=== PATIENT | male | born 1955 | race Caucasian/White ===

== ENCOUNTER 2017-07-01 12:11 | Observation (INO) | payer BC ==
[2017-07-01] MEDS ORDERED: Ondansetron 4 MG/2 ML SDV IVPUSH ONE ×2 (12:21→13:09)
[2017-07-01] MEDS ORDERED: Sodium Chloride 0.9% 1,000 ML IV SCH ×2 (12:30→14:00)
--- NOTE | 2017-07-01 12:37 | EDM.PDOC ---
ED HPI GENERAL MEDICAL PROBLEM - General Chief Complaint: Gastrointestinal Problem Stated Complaint: VOMITING Time Seen by Provider: 07/01/17 12:30 Source of Information: Reports: Patient History Limitations: Reports: No Limitations - History of Present Illness INITIAL COMMENTS - FREE TEXT/NARRATIVE: pt got up this am and felt well He was out walking and he suddenly became very nauseated and vomited alot. He has continued to wretch and vomit. He Does not have pain in his abdoman. He has been taking alot of nonsteroidals and he is on tramodol. Onset: Today, Sudden, Other ( He felt well earlier. He has been very sweaty with the vomiting. There has been blood streaked through the emesis. ) Duration: Hour(s):, Getting Worse Associated Symptoms: Reports: Nausea/Vomiting, Other ( some loose stool. He is on immunsuppresive thereapy for the melanoma. ) - Related Data Allergies Allergy/AdvReac Type Severity Reaction Status Date / Time atorvastatin AdvReac Muscle Verified 01/31/17 13:54 Aches meperidine AdvReac Nausea and Verified 01/31/17 13:54 Vomiting morphine AdvReac Nausea Verified 01/31/17 13:54 Home Meds: Home Meds Aspirin [Ecotrin] 81 mg PO DAILY 07/12/15 [History] Diltiazem HCl [Diltiazem ER] 240 mg PO DAILY 07/12/15 [History] Insulin Detemir [Levemir Flextouch] 50 units SQ BEDTIME 07/12/15 [History] Losartan [Cozaar] 100 mg PO DAILY 07/12/15 [History] Omeprazole 20 mg PO ACBREAKFAST 07/12/15 [History] metFORMIN [Glucophage] 850 mg PO BIDMEALS 07/12/15 [History] Insulin Aspart [NovoLOG] 25 units SUBCUT TIDMEALS 02/11/16 [History] Naproxen Sodium [Aleve] 440 mg PO BID 07/01/17 [History] traMADol [Ultram] 50 mg PO BEDTIME 07/01/17 [History] Past Medical History HEENT History: Reports: Impaired Vision Other HEENT History: wears glasses Cardiovascular History: Reports: High Cholesterol, Hypertension Respiratory History: Reports: Sleep Apnea Gastrointestinal History: Reports: GERD, Other (See Below) Other Gastrointestinal History: ulcer Genitourinary History: Reports: Renal Calculus Musculoskeletal History: Reports: Arthritis Neurological History: Reports: Head Trauma Endocrine/Metabolic History: Reports: Diabetes, Type II, Obesity/BMI 30+ Oncologic (Cancer) History: Reports: Other (See Below) Other Oncologic History: melanoma Dermatologic History: Reports: Melanoma Other Dermatologic History: left forehead - Infectious Disease History Infectious Disease History: Reports: Chicken Pox, Measles - Past Surgical History HEENT Surgical History: Reports: None Cardiovascular Surgical History: Reports: None Respiratory Surgical History: Reports: None GI Surgical History: Reports: Colonoscopy, Hernia Repair/Other Male Surgical History: Reports: None Endocrine Surgical History: Reports: None Musculoskeletal Surgical History: Reports: Arthroscopic Knee, Knee Replacement Dermatological Surgical History: Reports: None Social & Family History - Family History Family Medical History: Noncontributory - Tobacco Use Smoking Status *Q: Never Smoker Second Hand Smoke Exposure: No - Caffeine Use Caffeine Use: Reports: Coffee - Recreational Drug Use Recreational Drug Use: No ED ROS GENERAL - Review of Systems Review Of Systems: See Below Constitutional: Reports: Diaphoresis, Other (Pt was very sweaty with all the vomiting. ) HEENT: Reports: No Symptoms Respiratory: Reports: No Symptoms Cardiovascular: Reports: No Symptoms Endocrine: Reports: No Symptoms GI/Abdominal: Reports: Hematemesis, Nausea, Vomiting : Reports: No Symptoms Musculoskeletal: Reports: No Symptoms Skin: Reports: No Symptoms ED EXAM, GI/ABD - Physical Exam Exam: See Below Text/Narrative:: Pt was wretching and actively vomiting on arrival. He has been vomiting nearly continuously since it started. He has blood in the emesis--streaked through the emesis. He has no abdomanal pain. Exam Limited By: No Limitations General Appearance: Alert, Anxious, Moderate Distress, Active Emesis, Other Ears: Normal TMs Nose: Normal Inspection Throat/Mouth: Normal Inspection Head: Atraumatic Neck: Normal Inspection Respiratory/Chest: No Respiratory Distress Cardiovascular: Regular Rate, Rhythm, Other (pt had no chest pin. ) GI/Abdominal Exam: Soft, Non-Tender (Male) Exam: Deferred Rectal (Males) Exam: Deferred, Other (pt has not had black tarry stools. ) Back Exam: Normal Inspection Extremities: Normal Inspection Neurological: Alert, Oriented, Normal Cognition Psychiatric: Normal Affect Course - Vital Signs Last Recorded V/S: Last Vital Signs Temp 35.8 C 05/06/18 12:37 Pulse 73 07/01/17 12:37 Resp 16 07/01/17 12:37 BP 174/91 H 07/01/17 12:37 Pulse Ox 96 07/01/17 12:37 - Orders/Labs/Meds Orders: Active Orders 24 hr Category Date Time Status EKG Documentation Completion [RC] ASDIRECTED Care 07/01/17 13:06 Active OCCULT BLOOD, GASTRIC [OP] Stat Lab 07/01/17 12:31 Ordered UA W/MICROSCOPIC [URIN] Urgent Lab 07/01/17 12:21 Ordered Sodium Chloride 0.9% [Normal Saline] 1,000 ml Med 07/01/17 12:30 Active IV ASDIRECTED EKG 12 Lead [EK] Routine Ther 07/01/17 13:06 Ordered Medication Orders Sodium Chloride (Normal Saline) 1,000 mls @ 999 mls/hr IV ASDIRECTED HA Last Admin: 07/01/17 12:34 Dose: 999 mls/hr Labs: Laboratory Tests 07/01/17 07/01/17 07/01/17 Range/Units 12:28 12:28 12:28 WBC 5.8 (4.5-11.0) K/uL RBC 4.73 (4.30-5.90) M/uL Hgb 13.6 (12.0-15.0) g/dL Hct 40.9 (40.0-54.0) % MCV 87 (80-98) fL MCH 29 (27-31) pg MCHC 33 (32-36) % Plt Count 199 (150-400) K/uL Neut % (Auto) 56 (36-66) % Lymph % (Auto) 25 (24-44) % [place] % (Auto) 10 H (2-6) % Eos % (Auto) 9 H (2-4) % Baso % (Auto) 0 (0-1) % Sodium 141 (140-148) mmol/L Potassium 4.1 (3.6-5.2) mmol/L Chloride 105 (100-108) mmol/L Carbon Dioxide 26 (21-32) mmol/L Anion Gap 10.4 (5.0-14.0) mmol/L BUN 22 H (7-18) mg/dL Creatinine 1.2 (0.8-1.3) mg/dL Est Cr Clr Drug Dosing 69.16 mL/min Estimated GFR (MDRD) > 60 (>60) Glucose 139 H (74-106) mg/dL Calcium 9.0 (8.5-10.1) mg/dL Total Bilirubin 0.6 (0.2-1.0) mg/dL AST 35 (15-37) U/L ALT 35 (12-78) U/L Alkaline Phosphatase 76 (46-116) U/L Troponin I (0.000-0.056) ng/mL C-Reactive Protein 0.23 (0.0-0.3) mg/dL Total Protein 7.5 (6.4-8.2) g/dL Albumin 4.2 (3.4-5.0) g/dL Globulin 3.3 (2.3-3.5) g/dL Albumin/Globulin Ratio 1.3 (1.2-2.2) 07/01/17 Range/Units 13:07 WBC (4.5-11.0) K/uL RBC (4.30-5.90) M/uL Hgb (12.0-15.0) g/dL Hct (40.0-54.0) % MCV (80-98) fL MCH (27-31) pg MCHC (32-36) % Plt Count (150-400) K/uL Neut % (Auto) (36-66) % Lymph % (Auto) (24-44) % [place] % (Auto) (2-6) % Eos % (Auto) (2-4) % Baso % (Auto) (0-1) % Sodium (140-148) mmol/L Potassium (3.6-5.2) mmol/L Chloride (100-108) mmol/L Carbon Dioxide (21-32) mmol/L Anion Gap (5.0-14.0) mmol/L BUN (7-18) mg/dL Creatinine (0.8-1.3) mg/dL Est Cr Clr Drug Dosing mL/min Estimated GFR (MDRD) (>60) Glucose (74-106) mg/dL Calcium (8.5-10.1) mg/dL Total Bilirubin (0.2-1.0) mg/dL AST (15-37) U/L ALT (12-78) U/L Alkaline Phosphatase (46-116) U/L Troponin I < 0.017 (0.000-0.056) ng/mL C-Reactive Protein (0.0-0.3) mg/dL Total Protein (6.4-8.2) g/dL Albumin (3.4-5.0) g/dL Globulin (2.3-3.5) g/dL Albumin/Globulin Ratio (1.2-2.2) Meds: Medications Generic Name Dose Route Start Last Admin Trade Name Freq PRN Reason Stop Dose Admin Sodium Chloride 1,000 mls @ 999 mls/hr 07/01/17 12:30 07/01/17 12:34 Normal Saline IV 999 mls/hr ASDIRECTED HA Administration Discontinued Medications Generic Name Dose Route Start Last Admin Trade Name Freq PRN Reason Stop Dose Admin Ondansetron HCl 4 mg 07/01/17 12:21 07/01/17 12:33 Zofran IVPUSH 07/01/17 12:22 4 mg ONETIME ONE Administration Ondansetron HCl 4 mg 07/01/17 13:09 07/01/17 13:17 Zofran IVPUSH 07/01/17 13:10 4 mg ONETIME ONE Administration - Re-Assessments/Exams Free Text/Narrative Re-Assessment/Exam: 07/01/17 13:56 pt was given iv zoforan and a liter of fluids. he is feeling better but feels like he could start vomiting at anytime. 07/01/17 13:57 his lab work shows he is dry. His gastrocult was positive. Departure - Departure Time of Disposition: 13:58 Disposition: Admitted As Inpatient 65 Condition: Fair Clinical Impression: Dehydration, Bleeding, Melanoma - Discharge Information Referrals: Roney Gallo MD [Primary Care Provider] - Forms: ED Department Discharge Care Plan Goals: admit to Dr mack. - My Orders Last 24 Hours: My Active Orders 07/01/17 12:21 UA W/MICROSCOPIC [URIN] Urgent 07/01/17 12:30 Sodium Chloride 0.9% [Normal Saline] 1,000 ml IV ASDIRECTED 07/01/17 12:31 OCCULT BLOOD, GASTRIC [OP] Stat 07/01/17 13:06 EKG Documentation Completion [RC] ASDIRECTED EKG 12 Lead [EK] Routine - Assessment/Plan Last 24 Hours: My Active Orders 07/01/17 12:21 UA W/MICROSCOPIC [URIN] Urgent 07/01/17 12:30 Sodium Chloride 0.9% [Normal Saline] 1,000 ml IV ASDIRECTED 07/01/17 12:31 OCCULT BLOOD, GASTRIC [OP] Stat 07/01/17 13:06 EKG Documentation Completion [RC] ASDIRECTED EKG 12 Lead [EK] Routine
[2017-07-01] MEDS ORDERED: LORazepam 2 MG/ML SDV IVPUSH ONE (14:34)
[2017-07-01] MEDS ORDERED: LORazepam 2 MG/ML SDV ONE (14:40)
--- NOTE | 2017-07-01 14:59 | PCM.HP ---
H&P History of Present Illness - General Date of Service: 07/01/17 Admit Problem/Dx: Source of Information: Patient, Provider, RN Notes Reviewed History Limitations: Reports: No Limitations - History of Present Illness Initial Comments - Free Text/Narative: Mr. Chin is a 62-year-old gentleman who is admitted to observation status through the emergency department for further evaluation and management of nausea and vomiting. This past year he is been diagnosed with malignant melanoma and has been undergoing immune modulated chemotherapy. He has been doing fairly well with this and has been able to be relatively active. This morning noted abrupt onset of nausea and vomiting which persisted over a few hours until he arrived in the emergency department. He has received Zofran which does seem to have suppressed the nausea and vomiting. He denies any abdominal pain or fever did have significant diaphoresis with onset of the nausea. He's been eating the same food as his over the past 24 hours and she has not developed similar symptoms. He did note some blood in the emesis after he had already vomited several times. Flat plate and upright x-ray of the abdomen shows nonspecific bowel gas pattern and evidence of a large amount of stool. - Related Data Allergies/Adverse Reactions: Allergies Allergy/AdvReac Type Severity Reaction Status Date / Time atorvastatin AdvReac Muscle Verified 01/31/17 13:54 Aches meperidine AdvReac Nausea and Verified 01/31/17 13:54 Vomiting morphine AdvReac Nausea Verified 01/31/17 13:54 Home Medications: Home Meds Aspirin [Ecotrin] 81 mg PO DAILY 07/12/15 [History] Diltiazem HCl [Diltiazem ER] 240 mg PO DAILY 07/12/15 [History] Insulin Detemir [Levemir Flextouch] 50 units SQ BEDTIME 07/12/15 [History] Losartan [Cozaar] 100 mg PO DAILY 07/12/15 [History] Omeprazole 20 mg PO ACBREAKFAST 07/12/15 [History] metFORMIN [Glucophage] 850 mg PO BIDMEALS 07/12/15 [History] Insulin Aspart [NovoLOG] 25 units SUBCUT TIDMEALS 02/11/16 [History] Naproxen Sodium [Aleve] 440 mg PO BID 07/01/17 [History] traMADol [Ultram] 50 mg PO BEDTIME 05/06/18 [History] Past Medical History HEENT History: Reports: Impaired Vision Other HEENT History: wears glasses Cardiovascular History: Reports: High Cholesterol, Hypertension Respiratory History: Reports: Sleep Apnea Gastrointestinal History: Reports: GERD, Other (See Below) Other Gastrointestinal History: ulcer Genitourinary History: Reports: Renal Calculus Musculoskeletal History: Reports: Arthritis Neurological History: Reports: Head Trauma Endocrine/Metabolic History: Reports: Diabetes, Type II, Obesity/BMI 30+ Oncologic (Cancer) History: Reports: Other (See Below) Other Oncologic History: melanoma Dermatologic History: Reports: Melanoma Other Dermatologic History: left forehead - Infectious Disease History Infectious Disease History: Reports: Chicken Pox, Measles - Past Surgical History HEENT Surgical History: Reports: None Cardiovascular Surgical History: Reports: None Respiratory Surgical History: Reports: None GI Surgical History: Reports: Colonoscopy, Hernia Repair/Other Male Surgical History: Reports: None Endocrine Surgical History: Reports: None Musculoskeletal Surgical History: Reports: Arthroscopic Knee, Knee Replacement Dermatological Surgical History: Reports: None Social & Family History - Family History Family Medical History: Noncontributory - Tobacco Use Smoking Status *Q: Never Smoker Second Hand Smoke Exposure: No - Caffeine Use Caffeine Use: Reports: Coffee - Recreational Drug Use Recreational Drug Use: No H&P Review of Systems - Review of Systems: Review Of Systems: See Below General: Denies: Fever, Chills, Weakness HEENT: Reports: No Symptoms Pulmonary: Reports: No Symptoms Cardiovascular: Reports: No Symptoms Gastrointestinal: Reports: Nausea, Vomiting. Denies: Abdominal Pain, Black Stool, Bloody Stool, Constipation, Diarrhea, Decreased Appetite, Difficulty Swallowing, Distension Genitourinary: Reports: No Symptoms Musculoskeletal: Reports: Joint Pain, Joint Swelling, Muscle Stiffness Skin: Reports: No Symptoms Psychiatric: Reports: No Symptoms Neurological: Reports: No Symptoms Hematologic/Lymphatic: Reports: No Symptoms Immunologic: Reports: No Symptoms Exam - Exam Exam: See Below - Vital Signs Vital Signs: Last Vital Signs Temp 96.5 F 07/01/17 12:37 Pulse 63 07/01/17 13:30 Resp 16 07/01/17 13:30 BP 161/89 H 07/01/17 13:30 Pulse Ox 98 07/01/17 13:30 Weight: 281 lb - Exam General: Alert, Oriented, Cooperative, Moderate Distress HEENT: Conjunctiva Clear, Hearing Intact, Normal Nasal Septum, Posterior Pharynx Clear, Pupils Equal. No: Mucosa Moist & Meta Neck: Supple, Trachea Midline, +2 Carotid Pulse wo Bruit Lungs: Clear to Auscultation, Normal Respiratory Effort Cardiovascular: Regular Rate, Regular Rhythm, Normal S1, Normal S2. No: Systolic Murmur, Diastolic Murmur GI/Abdominal Exam: Soft, Non-Tender, No Organomegaly, No Distention Back Exam: Normal Inspection, Full Range of Motion Extremities: Non-Tender, No Pedal Edema Skin: Warm, Dry Neurological: Cranial Nerves Intact, Strength Equal Bilateral, Normal Speech, Normal Tone, Sensation Intact. No: Focal Deficit Neuro Extensive - Mental Status: Alert, Oriented x3, Normal Mood/Affect, Normal Cognition, Memory Intact - Patient Data Lab Results Last 24 hrs: Laboratory Results - last 24 hr 07/01/17 07/01/17 07/01/17 Range/Units 12:28 12:28 12:28 WBC 5.8 (4.5-11.0) K/uL RBC 4.73 (4.30-5.90) M/uL Hgb 13.6 (12.0-15.0) g/dL Hct 40.9 (40.0-54.0) % MCV 87 (80-98) fL MCH 29 (27-31) pg MCHC 33 (32-36) % Plt Count 199 (150-400) K/uL Neut % (Auto) 56 (36-66) % Lymph % (Auto) 25 (24-44) % [place] % (Auto) 10 H (2-6) % Eos % (Auto) 9 H (2-4) % Baso % (Auto) 0 (0-1) % Sodium 141 (140-148) mmol/L Potassium 4.1 (3.6-5.2) mmol/L Chloride 105 (100-108) mmol/L Carbon Dioxide 26 (21-32) mmol/L Anion Gap 10.4 (5.0-14.0) mmol/L BUN 22 H (7-18) mg/dL Creatinine 1.2 (0.8-1.3) mg/dL Est Cr Clr Drug Dosing 69.16 mL/min Estimated GFR (MDRD) > 60 (>60) Glucose 139 H (74-106) mg/dL Calcium 9.0 (8.5-10.1) mg/dL Total Bilirubin 0.6 (0.2-1.0) mg/dL AST 35 (15-37) U/L ALT 35 (12-78) U/L Alkaline Phosphatase 76 (46-116) U/L Troponin I (0.000-0.056) ng/mL C-Reactive Protein 0.23 (0.0-0.3) mg/dL Total Protein 7.5 (6.4-8.2) g/dL Albumin 4.2 (3.4-5.0) g/dL Globulin 3.3 (2.3-3.5) g/dL Albumin/Globulin Ratio 1.3 (1.2-2.2) 07/01/17 Range/Units 13:07 WBC (4.5-11.0) K/uL RBC (4.30-5.90) M/uL Hgb (12.0-15.0) g/dL Hct (40.0-54.0) % MCV (80-98) fL MCH (27-31) pg MCHC (32-36) % Plt Count (150-400) K/uL Neut % (Auto) (36-66) % Lymph % (Auto) (24-44) % [place] % (Auto) (2-6) % Eos % (Auto) (2-4) % Baso % (Auto) (0-1) % Sodium (140-148) mmol/L Potassium (3.6-5.2) mmol/L Chloride (100-108) mmol/L Carbon Dioxide (21-32) mmol/L Anion Gap (5.0-14.0) mmol/L BUN (7-18) mg/dL Creatinine (0.8-1.3) mg/dL Est Cr Clr Drug Dosing mL/min Estimated GFR (MDRD) (>60) Glucose (74-106) mg/dL Calcium (8.5-10.1) mg/dL Total Bilirubin (0.2-1.0) mg/dL AST (15-37) U/L ALT (12-78) U/L Alkaline Phosphatase (46-116) U/L Troponin I < 0.017 (0.000-0.056) ng/mL C-Reactive Protein (0.0-0.3) mg/dL Total Protein (6.4-8.2) g/dL Albumin (3.4-5.0) g/dL Globulin (2.3-3.5) g/dL Albumin/Globulin Ratio (1.2-2.2) Result Diagrams: 07/01/17 12:28 07/01/17 12:28 [place] Results Last 24 hrs: Microbiology 07/01/17 12:31 Gastric Occult Blood - Final Gastric Fluid *Q Meaningful Use (ADM) - VTE Risk Assess *Q Each Risk Factor Represents 1 Point: Obesity ( BMI > 25 kg/m2) Total Score 1 Point Risk Factors: 1 Each Risk Factor Represents 2 Points: Age 60 - 74 Years, Malignancy (present or previous) Total Score 2 Point Risk Factors: 4 Each Risk Factor Represents 3 Points: None Total Score 3 Point Risk Factors: 0 Each Risk Factor Represents 5 Points: None Total Score 5 Point Risk Factors: 0 Venous Thromboembolism Risk Factor Score *Q: 5 Problem List Initiated/Reviewed/Updated: Yes Orders Last 24hrs: Active Orders 24 hr Category Date Time Status Patient Status Manage Transfer [TRANSFER] Routine ADT 07/01/17 14:45 Active EKG Documentation Completion [RC] ASDIRECTED Care 07/01/17 13:06 Active Abdomen 2V AP Upright Decub [CR] Stat Exams 07/01/17 14:56 Ordered OCCULT BLOOD, GASTRIC [OP] Stat Lab 07/01/17 12:31 Ordered UA W/MICROSCOPIC [URIN] Urgent Lab 07/01/17 12:21 Ordered Sodium Chloride 0.9% [Normal Saline] 1,000 ml Med 07/01/17 12:30 Active IV ASDIRECTED Sodium Chloride 0.9% [Normal Saline] 1,000 ml Med 07/01/17 14:00 Active IV ASDIRECTED Resuscitation Status Routine Resus Stat 07/01/17 14:48 Ordered EKG 12 Lead [EK] Routine Ther 07/01/17 13:06 Ordered Medication Orders Sodium Chloride (Normal Saline) 1,000 mls @ 999 mls/hr IV ASDIRECTED HA Last Admin: 07/01/17 12:34 Dose: 999 mls/hr Sodium Chloride (Normal Saline) 1,000 mls @ 999 mls/hr IV ASDIRECTED HA Last Admin: 07/01/17 14:45 Dose: 999 mls/hr Assessment/Plan Comment:: ASSESSMENT AND PLAN NAUSEA AND VOMITING-specific etiology not apparent, white blood cell count normal and he has been afebrile. Denies significant abdominal pain, but has been taking nonsteroidal medications on a regular basis. Abdominal flat plate and upright x-ray shows no evidence of obstruction but does identify a large amount of stool within the colon. He did develop diaphoresis with onset of the nausea, but has not had fever or chills. Denies diarrhea or significant constipation. After he had been vomiting for a while started to note small amount of blood within the emesis. -IV fluids for hydration -Anti-emetic therapy as needed -Protonix 40 mg IV every 12 hours -Consult Dr. Phan for EGD in a.m. -Manage probable constipation TYPE 2 DIABETES MELLITUS -Hold metformin and scheduled NovoLog -4 times a day glucometers -Continue usual dose of long-acting insulin -High-dose sliding scale NovoLog MALIGNANT MELANOMA-he has had significant musculoskeletal pain related to immune modulated therapy -Hold nonsteroidal therapy MAINTENANCE ISSUES -DVT prophylaxis; ambulation -GI prophylaxis; Protonix as above -V[place] catheter; not indicated -Nutrition; clear liquid diet, nothing by mouth after midnight -Nicotine dependence; not required CODE STATUS-FULL CODE ADMISSION STATUS-this patient will be admitted to observation status, expect no more than a one night hospital stay for evaluation and management of problems as outlined above. DISPOSITION-anticipate discharge to home after the hospital stay. PRIMARY CARE PROVIDER-Dr. Gallo
[2017-07-01] MEDS ORDERED: traMADol 50 MG Tab PO SCH (15:32)
[2017-07-01] MEDS ORDERED: Magnesium Hydroxide 400 MG/5 ML Susp 30 ML Cup PO PRN (15:32)
[2017-07-01] MEDS ORDERED: Acetaminophen 325 MG Tab PO PRN (15:32)
[2017-07-01] MEDS ORDERED: Sodium Chloride 0.9% 500 ML IV SCH (15:32)
[2017-07-01] MEDS ORDERED: 50% Dextrose in Water 50 ML Syringe IV PRN (15:32)
[2017-07-01] MEDS ORDERED: Glucose Gel 15 GM in 37.5 GM Tube PO PRN (15:32)
[2017-07-01] MEDS ORDERED: LORazepam 2 MG/ML SDV IVPUSH PRN (15:32)
[2017-07-01] MEDS ORDERED: Polyethylene Glycol 3350 Powder 17 GM Packet PO PRN (15:32)
[2017-07-01] MEDS ORDERED: Sodium Chloride 0.9% 10 ML Syringe FLUSH PRN (15:32)
[2017-07-01] MEDS: Ondansetron 4 MG/2 ML SDV IV PRN ×2 (15:55→20:39)
[2017-07-01] MEDS: Pantoprazole 40 MG Vial IV SCH (15:59)
[2017-07-01] MEDS ORDERED: traMADol 50 MG Tab PO PRN (16:02)
[2017-07-01] MEDS ORDERED: Melatonin 3 MG Tab PO PRN (16:03)
[2017-07-01] MEDS: Insulin Aspart 100 Units/ML 3 ML Pen SUBCUT SCH ×2 (17:24→20:00)
[2017-07-01] MEDS: Sodium Chloride 0.9% 1,000 ML IV SCH (18:52)
[2017-07-01] MEDS ORDERED: Bisacodyl 10 MG Supp RECTAL ONE (20:36)
[2017-07-01] MEDS ORDERED: Insulin Detemir 100 Units/ML 3 ML Pen SUBCUT SCH (21:00)
[2017-07-02] MEDS: Sodium Chloride 0.9% 1,000 ML IV SCH (02:58)
[2017-07-02] MEDS: Pantoprazole 40 MG Vial IV SCH (03:01)
[2017-07-02] MEDS ORDERED: fentaNYL 100 MCG/2 ML SDV ONE (07:32)
[2017-07-02] MEDS ORDERED: Propofol 200 MG/20 ML SDV ONE (07:32)
[2017-07-02] MEDS ORDERED: Losartan 50 MG Tab PO SCH (09:00)
[2017-07-02] MEDS ORDERED: Diltiazem 120 MG Cap.CD PO SCH (09:00)
[2017-07-02] MEDS ORDERED: Non-Formulary Medication 1 Each (Losartan [Cozaar] 100 MG) PO SCH (09:00)
[2017-07-02] MEDS ORDERED: Aspirin 81 MG Tab.EC PO SCH (09:00)
[2017-07-02] MEDS ORDERED: DILTIAZEM HCL 240 MG PO SCH (09:00)
[2017-07-02] MEDS: Insulin Aspart 100 Units/ML 3 ML Pen SUBCUT SCH (09:38)
--- NOTE | 2017-07-02 09:38 | CR ---
Abdomen 2V AP Upright Decub INDICATION: nausea and vomiting COMPARISON: None FINDINGS: 4 views of the abdomen. Moderate amount stool in the colon. Calcified granulomas in the sp tianna. No signs of bowel obstruction.
--- NOTE | 2017-07-02 10:38 | PCM.DCSUM1 ---
Discharge Summary - Hospital Course Brief History: 62-year-old male with insulin-dependent diabetes mellitus and malignant melanoma currently on immunomodulating treatment who presented with acute onset of nausea with vomiting. He was admitted for further management and evaluation. - Discharge Data Discharge Date: 07/02/17 Discharge Disposition: Home, Self-Care 01 Condition: Good - Discharge Diagnosis/Problem(s) (1) Gastritis SNOMED Code(s): 2606843 ICD Code: K29.70 - GASTRITIS, UNSPECIFIED, WITHOUT BLEEDING Status: Acute Qualifiers: Gastritis type: other gastritis Chronicity: acute Gastritis bleeding: with bleeding Qualified Code(s): K29.01 - Acute gastritis with bleeding (2) Melanoma SNOMED Code(s): 467172095 ICD Code: C43.9 - MALIGNANT MELANOMA OF SKIN, UNSPECIFIED Status: Chronic Qualifiers: Melanoma location: unspecified site Qualified Code(s): C43.9 - Malignant melanoma of skin, unspecified (3) Type 2 diabetes mellitus SNOMED Code(s): 54134888 ICD Code: E11.9 - TYPE 2 DIABETES MELLITUS WITHOUT COMPLICATIONS Status: Chronic Qualifiers: Diabetes mellitus backend developer insulin use: with assisted use Diabetes mellitus complication status: with unspecified complications Qualified Code(s) : E11.8 - Type 2 diabetes mellitus with unspecified complications; Z79.4 - half-way (current) use of insulin - Patient Summary/Data Consults: Consultations 07/01/17 15:32 Consult to Physician [CONS] Routine Consulting Provider: Hadley Phan Call Completed to Consulting Physician: Yes Reason for Consult: nausea and vomiting Hospital Course: Lele presented to the emergency room with acute onset of nausea with vomiting as well as some very mild hematemesis. He was admitted to the hospital for further workup and management with no obvious cause noted on workup in the emergency room. Overnight after admission he received IV fluids as well as symptomatic management. The morning after admission he has not had recurrence of the vomiting and nausea has improved. He did have an EGD which revealed some mild inflammation at the gastroesophageal junction consistent with reflux. He also had a polyp that was removed and sent for pathology. After returning from the procedure he tolerated a regular diet for lunch. He has not had any vomiting and has no nausea. He reports that he feels like he's back to his usual self and is interested in going home at this time. The exact cause for his difficulties is not entirely clear. Viral infection could be considered given acute onset and rapid resolution without intervention. He has not had any fevers. I suspect the very mild hematemesis was related to the inflammation from reflux with no obvious cause for bleeding noted. He will be discharged to home. No new medications or changes were made at the time of discharge. Further workup such as a colonoscopy could be considered if he has additional episodes. He is on a proton pump inhibitor. - Patient Instructions Diet: Diabetic Diet Activity: As Tolerated Driving: Do Not Drive (do not drive today since you had anesthesia this morning ) Showering/Bathing: May Shower Notify Provider of: Fever, Increased Pain, Nausea and/or Vomiting Other/Special Instructions: 1. You were in the hospital for evaluation of acute onset nausea with vomiting. The exact cause for her symptoms was not determined. Symptoms have resolved with supportive therapy. I would recommend continuing your usual home medications and monitoring for return of symptoms with quick resolution and no obvious acute cause found. 2. Continue your usual home medications as previously prescribed. 3. Follow-up as needed if symptoms return. 4. Seek medical attention if you develop acute onset of abdominal pain , severe vomiting or fever greater than 101. - Discharge Plan Home Medications: Home Meds Aspirin [Ecotrin] 81 mg PO DAILY 07/12/15 [History] Diltiazem HCl [Diltiazem ER] 240 mg PO DAILY 07/12/15 [History] Insulin Detemir [Levemir Flextouch] 50 units SQ BEDTIME 07/12/15 [History] Losartan [Cozaar] 100 mg PO DAILY 07/12/15 [History] Omeprazole 20 mg PO ACBREAKFAST 07/12/15 [History] metFORMIN [Glucophage] 850 mg PO BIDMEALS 07/12/15 [History] Insulin Aspart [NovoLOG] 25 units SUBCUT TIDMEALS 02/11/16 [History] DULoxetine [Cymbalta] 60 mg PO DAILY 07/01/17 [History] Naproxen Sodium [Aleve] 440 mg PO BID 07/01/17 [History] Oxybutynin 5 mg PO TID 07/01/17 [History] Valsartan/Hydrochlorothiazide [Valsartan-Hctz 80-12.5 mg Tab] 1 tab PO DAILY 08/13 [History] traMADol [Ultram] 50 mg PO BEDTIME 07/01/17 [History] Patient Handouts: Gastritis, Adult Referrals: Roney Gallo MD [Primary Care Provider] - (f/u as needed after the hospital stay ) - Discharge Summary/Plan Comment DC Time >30 min.: No (25) - Patient Data Vitals - Most Recent: Last Vital Signs Temp 36.2 C 07/02/17 09:05 Pulse 69 07/02/17 09:05 Resp 20 07/02/17 09:05 BP 159/90 H 07/02/17 09:05 Pulse Ox 93 L 07/02/17 09:05 Weight - Most Recent: 127.459 kg I&O - Last 24 hours: Intake & Output 07/01/17 07/02/17 07/02/17 22:59 06:59 14:59 Intake Total 1700 1470 Output Total 100 575 Balance 1600 895 Lab Results - Last 24 hrs: Laboratory Results - last 24 hr 07/01/17 07/01/17 07/01/17 Range/Units 12:28 12:28 12:28 WBC 5.8 (4.5-11.0) K/uL RBC 4.73 (4.30-5.90) M/uL Hgb 13.6 (12.0-15.0) g/dL Hct 40.9 (40.0-54.0) % MCV 87 (80-98) fL MCH 29 (27-31) pg MCHC 33 (32-36) % Plt Count 199 (150-400) K/uL Neut % (Auto) 56 (36-66) % Lymph % (Auto) 25 (24-44) % Wilkin % (Auto) 10 H (2-6) % Eos % (Auto) 9 H (2-4) % Baso % (Auto) 0 (0-1) % Sodium 141 (140-148) mmol/L Potassium 4.1 (3.6-5.2) mmol/L Chloride 105 (100-108) mmol/L Carbon Dioxide 26 (21-32) mmol/L Anion Gap 10.4 (5.0-14.0) mmol/L BUN 22 H (7-18) mg/dL Creatinine 1.2 (0.8-1.3) mg/dL Est Cr Clr Drug Dosing 69.16 mL/min Estimated GFR (MDRD) > 60 (>60) Glucose 139 H (74-106) mg/dL Calcium 9.0 (8.5-10.1) mg/dL Total Bilirubin 0.6 (0.2-1.0) mg/dL AST 35 (15-37) U/L ALT 35 (12-78) U/L Alkaline Phosphatase 76 (46-116) U/L Troponin I (0.000-0.056) ng/mL C-Reactive Protein 0.23 (0.0-0.3) mg/dL Total Protein 7.5 (6.4-8.2) g/dL Albumin 4.2 (3.4-5.0) g/dL Globulin 3.3 (2.3-3.5) g/dL Albumin/Globulin Ratio 1.3 (1.2-2.2) Urine Color Urine Appearance Urine pH (4.5-8.0) Ur Specific [place] (1.008-1.030) Urine Protein (NEGATIVE) mg/dL Urine Glucose (UA) (NEGATIVE) mg/dL Urine Ketones (NEGATIVE) mg/dL Urine Occult Blood (NEGATIVE) Urine Nitrite (NEGAITVE) Urine Bilirubin (NEGATIVE) Urine Urobilinogen (NORMAL) mg/dL Ur Leukocyte Esterase (NEGATIVE) Urine RBC (0-5) Urine WBC (0-5) Ur Epithelial Cells Amorphous Sediment Urine Bacteria Urine Mucus 07/01/17 07/01/17 07/02/17 Range/Units 13:07 16:48 06:02 WBC 4.9 (4.5-11.0) K/uL RBC 4.38 (4.30-5.90) M/uL Hgb 12.7 (12.0-15.0) g/dL Hct 38.7 L (40.0-54.0) % MCV 88 (80-98) fL MCH 29 (27-31) pg MCHC 33 (32-36) % Plt Count 175 (150-400) K/uL Neut % (Auto) 56 (36-66) % Lymph % (Auto) 25 (24-44) % Wilkin % (Auto) 11 H (2-6) % Eos % (Auto) 8 H (2-4) % Baso % (Auto) 0 (0-1) % Sodium (140-148) mmol/L Potassium (3.6-5.2) mmol/L Chloride (100-108) mmol/L Carbon Dioxide (21-32) mmol/L Anion Gap (5.0-14.0) mmol/L BUN (7-18) mg/dL Creatinine (0.8-1.3) mg/dL Est Cr Clr Drug Dosing mL/min Estimated GFR (MDRD) (>60) Glucose (74-106) mg/dL Calcium (8.5-10.1) mg/dL Total Bilirubin (0.2-1.0) mg/dL AST (15-37) U/L ALT (12-78) U/L Alkaline Phosphatase (46-116) U/L Troponin I < 0.017 (0.000-0.056) ng/mL C-Reactive Protein (0.0-0.3) mg/dL Total Protein (6.4-8.2) g/dL Albumin (3.4-5.0) g/dL Globulin (2.3-3.5) g/dL Albumin/Globulin Ratio (1.2-2.2) Urine Color Yellow Urine Appearance Clear Urine pH 6.0 (4.5-8.0) Ur Specific [place] 1.015 (1.008-1.030) Urine Protein Negative (NEGATIVE) mg/dL Urine Glucose (UA) Normal (NEGATIVE) mg/dL Urine Ketones Negative (NEGATIVE) mg/dL Urine Occult Blood Negative (NEGATIVE) Urine Nitrite Negative (NEGAITVE) Urine Bilirubin Negative (NEGATIVE) Urine Urobilinogen Normal (NORMAL) mg/dL Ur Leukocyte Esterase Negative (NEGATIVE) Urine RBC 0-5 (0-5) Urine WBC 0-5 (0-5) Ur Epithelial Cells Not seen Amorphous Sediment Not seen Urine Bacteria Not seen Urine Mucus Not seen 07/02/17 Range/Units 06:02 WBC (4.5-11.0) K/uL RBC (4.30-5.90) M/uL Hgb (12.0-15.0) g/dL Hct (40.0-54.0) % MCV (80-98) fL MCH (27-31) pg MCHC (32-36) % Plt Count (150-400) K/uL Neut % (Auto) (36-66) % Lymph % (Auto) (24-44) % Wilkin % (Auto) (2-6) % Eos % (Auto) (2-4) % Baso % (Auto) (0-1) % Sodium 143 (140-148) mmol/L Potassium 3.8 (3.6-5.2) mmol/L Chloride 107 (100-108) mmol/L Carbon Dioxide 29 (21-32) mmol/L Anion Gap 6.6 (5.0-14.0) mmol/L BUN 13 (7-18) mg/dL Creatinine 1.0 (0.8-1.3) mg/dL Est Cr Clr Drug Dosing 82.99 mL/min Estimated GFR (MDRD) > 60 (>60) Glucose 84 (74-106) mg/dL Calcium 8.2 L (8.5-10.1) mg/dL Total Bilirubin (0.2-1.0) mg/dL AST (15-37) U/L ALT (12-78) U/L Alkaline Phosphatase (46-116) U/L Troponin I (0.000-0.056) ng/mL C-Reactive Protein (0.0-0.3) mg/dL Total Protein (6.4-8.2) g/dL Albumin (3.4-5.0) g/dL Globulin (2.3-3.5) g/dL Albumin/Globulin Ratio (1.2-2.2) Urine Color Urine Appearance Urine pH (4.5-8.0) Ur Specific [place] (1.008-1.030) Urine Protein (NEGATIVE) mg/dL Urine Glucose (UA) (NEGATIVE) mg/dL Urine Ketones (NEGATIVE) mg/dL Urine Occult Blood (NEGATIVE) Urine Nitrite (NEGAITVE) Urine Bilirubin (NEGATIVE) Urine Urobilinogen (NORMAL) mg/dL Ur Leukocyte Esterase (NEGATIVE) Urine RBC (0-5) Urine WBC (0-5) Ur Epithelial Cells Amorphous Sediment Urine Bacteria Urine Mucus ISAURO Results - Last 24 hrs: Microbiology 07/01/17 12:31 Gastric Occult Blood - Final Gastric Fluid Med Orders - Current: Current Medications Acetaminophen (Tylenol) 650 mg PO Q4H PRN PRN Reason: Pain (Mild 1-3)/fever Aspirin (Halfprin) 81 mg PO DAILY [facility] Dextrose (Glutose 15) 15 gm PO ASDIRECTED PRN PRN Reason: Hypoglycemia Dextrose/Water (Dextrose 50% In Water) 50 ml IV ASDIRECTED PRN PRN Reason: Hypoglycemia Diltiazem HCl (Cardizem Cd) 240 mg PO DAILY [facility] Sodium Chloride (Normal Saline) 1,000 mls @ 125 mls/hr IV ASDIRECTED [facility] Last Admin: 07/02/17 02:58 Dose: 125 mls/hr Insulin Aspart (Novolog) 0 unit SUBCUT QIDACANDBED [facility]; Protocol Last Admin: 07/02/17 09:38 Dose: Not Given Insulin Detemir (Levemir) 50 unit SUBCUT BEDTIME [facility] Last Admin: 07/01/17 20:51 Dose: 50 units Lorazepam (Ativan) 0.5 mg IVPUSH Q2H PRN PRN Reason: Nausea Losartan Potassium (Cozaar) 100 mg PO DAILY [facility] Magnesium Hydroxide (Milk Of Magnesia) 30 ml PO Q12H PRN PRN Reason: Constipation Last Admin: 07/01/17 20:50 Dose: 30 ml Melatonin (Melatonin) 9 mg PO BEDTIME PRN PRN Reason: Sleep Ondansetron HCl (Zofran) 4 mg IV Q4H PRN PRN Reason: Nausea/Vomiting Last Admin: 07/01/17 20:39 Dose: 4 mg Pantoprazole Sodium (Protonix Iv) 40 mg IV Q12H [facility] Last Admin: 07/02/17 03:01 Dose: 40 mg Polyethylene Glycol (Miralax) 17 gm PO DAILY PRN PRN Reason: Constipation Senna/Docusate Sodium (Senna Plus) 1 tab PO BID PRN PRN Reason: Constipation Sodium Chloride (Saline Flush) 10 ml FLUSH ASDIRECTED PRN PRN Reason: Keep Vein Open Tramadol HCl (Ultram) 50 mg PO Q4H PRN PRN Reason: Pain Discontinued Medications Bisacodyl (Dulcolax) 10 mg RECTAL ONETIME ONE Stop: 07/01/17 20:37 Last Admin: 07/01/17 20:59 Dose: Not Given Fentanyl (Sublimaze) Confirm Administered Dose 100 mcg .ROUTE .STK-MED ONE Stop: 07/02/17 07:33 Sodium Chloride (Normal Saline) 1,000 mls @ 999 mls/hr IV ASDIRECTED [facility] Last Admin: 07/01/17 12:34 Dose: 999 mls/hr Sodium Chloride (Normal Saline) 1,000 mls @ 999 mls/hr IV ASDIRECTED [facility] Last Admin: 07/01/17 14:45 Dose: 999 mls/hr Sodium Chloride (Normal Saline) 500 mls @ 250 mls/hr IV .BOLUS HA Stop: 07/01/17 19:33 Last Admin: 07/01/17 16:50 Dose: 250 mls/hr Lorazepam (Ativan) 0.5 mg IVPUSH ONETIME ONE Stop: 07/01/17 14:35 Last Admin: 07/01/17 14:44 Dose: 0.5 mg Lorazepam (Ativan) Confirm Administered Dose 2 mg .ROUTE .STK-MED ONE Stop: 07/01/17 14:41 Last Admin: 07/01/17 14:45 Dose: Not Given Ondansetron HCl (Zofran) 4 mg IVPUSH ONETIME ONE Stop: 07/01/17 12:22 Last Admin: 07/01/17 12:33 Dose: 4 mg Ondansetron HCl (Zofran) 4 mg IVPUSH ONETIME ONE Stop: 07/01/17 13:10 Last Admin: 07/01/17 13:17 Dose: 4 mg Propofol (Diprivan 20 Ml) Confirm Administered Dose 200 mg .ROUTE .STK-MED ONE Stop: 07/02/17 07:33 - Exam Quality Assessment: Denies: Supplemental Oxygen General: Reports: Alert, Oriented, Cooperative, No Acute Distress Neck: Reports: Supple Lungs: Reports: Normal Respiratory Effort GI/Abdominal Exam: Soft, No Distention Extremities: No Pedal Edema Psy/Mental Status: Reports: Alert, Normal Affect
--- NOTE | 2017-07-02 11:05 | OR ---
DATE OF PROCEDURE: 07/02/2017 PROCEDURE: EGD. FINDINGS: 1. No etiology for GI bleeding. 2. Gastric polyp, completely removed using cold biopsy forceps. 3. Inflammation of the GE junction consistent with reflux disease. PREOPERATIVE DIAGNOSIS: Gastrointestinal bleeding. POSTOPERATIVE DIAGNOSIS: Gastrointestinal bleeding. RISKS: Risks, benefits, alternatives, and limitations including, but not limited to infection, bleeding, and perforation were explained to the patient, who wished to proceed. PROCEDURE IN DETAIL: The patient was placed in left lateral decubitus position. The EGD scope was introduced and advanced atraumatically into the duodenum. No ulcers, duodenitis, or abnormality. In retroflex, there was no hiatal hernia. No gastric ulcers. Inflammation at the GE junction was consistent with reflux disease. This was biopsied x6 in all 4 quadrants. The air was removed from the stomach. The esophagus was normal. No etiology for lower GI bleeding. Hadley Phan MD /[id number]
[2017-07-02 11:06] VITALS: BP 153/80
== END 2017-07-02 10:55 | disposition home or self-care (01) ==
LOC: JP.ED 12:11 → JP.MS 14:45
PROVIDERS: ADMIT Hospitalist; ATTEND Internal Medicine
DX: K31.7 Polyp of stomach and duodenum (principal); C43.9 Malignant melanoma of skin, unspecified; K29.01 Acute gastritis with bleeding; I10 Essential (primary) hypertension; G47.30 Sleep apnea, unspecified; K21.9 Gastro-esophageal reflux disease without esophagitis; M19.90 Unspecified osteoarthritis, unspecified site; E11.9 Type 2 diabetes mellitus without complications; E66.9 Obesity, unspecified; Z68.35 Body mass index [BMI] 35.0-35.9, adult; Z88.5 Allergy status to narcotic agent; Z88.8 Allergy status to other drugs, medicaments and biological substances; Z79.82 Long term (current) use of aspirin; Z79.4 Long term (current) use of insulin; Z79.1 Long term (current) use of non-steroidal anti-inflammatories (NSAID); Z79.891 Long term (current) use of opiate analgesic; Z79.899 Other long term (current) drug therapy
CPT/HCPCS: 36415; 43239; 74021; 80048; 80053; 81001; 82271; 82962; 84484; 85025; 86140; 88305; 93005; 96361; 96374; 96375; 96376; 99285; A9270; C9113; J2060; J2405; J2704; J3010; J7040; G0378

== ENCOUNTER 2018-04-14 13:39 | Inpatient (IN) | payer BC ==
[2018-04-14] MEDS ORDERED: Sodium Chloride 0.9% 10 ML Syringe FLUSH PRN ×3 (14:54→19:32)
[2018-04-14] MEDS ORDERED: Ondansetron 4 MG/2 ML SDV IVPUSH ONE (14:54)
[2018-04-14] MEDS ORDERED: Lactated Ringers 1,000 ML IV SCH (15:00)
--- NOTE | 2018-04-14 15:02 | EDM.PDOC ---
ED HPI GENERAL MEDICAL PROBLEM - General Chief Complaint: Neuro Symptoms/Deficits Stated Complaint: VOMITING FOR 3 DAYS Time Seen by Provider: 04/14/18 14:39 Source of Information: Reports: Patient, Family, RN Notes Reviewed History Limitations: Reports: No Limitations - History of Present Illness INITIAL COMMENTS - FREE TEXT/NARRATIVE: 63-year-old gentleman presents emergency department today with sudden onset of dizziness with nausea and vomiting. He describes the dizziness as loss of balance he has difficulty walking he needs to walk with the assistance of some device which is new. He has had significant nausea and vomiting unable to keep his medications down this is been ongoing for the last 3 days - Related Data Allergies Allergy/AdvReac Type Severity Reaction Status Date / Time atorvastatin AdvReac Muscle Verified 04/14/18 13:57 Aches meperidine AdvReac Nausea and Verified 04/14/18 13:57 Vomiting morphine AdvReac Nausea Verified 04/14/18 13:57 Home Meds: Home Meds Aspirin [Ecotrin] 81 mg PO DAILY 07/12/15 [History] Diltiazem HCl [Diltiazem ER] 240 mg PO DAILY 07/12/15 [History] Insulin Detemir [Levemir Flextouch] 50 units SQ BEDTIME 07/12/15 [History] Losartan [Cozaar] 100 mg PO DAILY 07/12/15 [History] Omeprazole 20 mg PO ACBREAKFAST 07/12/15 [History] metFORMIN [Glucophage] 850 mg PO BIDMEALS 07/12/15 [History] Insulin Aspart [NovoLOG] 25 units SUBCUT TIDMEALS 02/11/16 [History] DULoxetine [Cymbalta] 60 mg PO DAILY 07/01/17 [History] Naproxen Sodium [Aleve] 440 mg PO BID 07/01/17 [History] Valsartan/Hydrochlorothiazide [Valsartan-Hctz 80-12.5 mg Tab] 1 tab PO DAILY 08/13 [History] Past Medical History HEENT History: Reports: Impaired Vision Other HEENT History: wears glasses Cardiovascular History: Reports: High Cholesterol, Hypertension Respiratory History: Reports: Sleep Apnea Gastrointestinal History: Reports: GERD, Other (See Below) Other Gastrointestinal History: ulcer Genitourinary History: Reports: Renal Calculus Musculoskeletal History: Reports: Arthritis Neurological History: Reports: Head Trauma Endocrine/Metabolic History: Reports: Diabetes, Type II, Obesity/BMI 30+ Oncologic (Cancer) History: Reports: Other (See Below) Other Oncologic History: melanoma Dermatologic History: Reports: Melanoma Other Dermatologic History: left forehead - Infectious Disease History Infectious Disease History: Reports: Chicken Pox, Measles - Past Surgical History HEENT Surgical History: Reports: None Cardiovascular Surgical History: Reports: None Respiratory Surgical History: Reports: None GI Surgical History: Reports: Colonoscopy, Hernia Repair/Other Male Surgical History: Reports: None Endocrine Surgical History: Reports: None Musculoskeletal Surgical History: Reports: Arthroscopic Knee, Knee Replacement Dermatological Surgical History: Reports: None Social & Family History - Family History Family Medical History: Noncontributory - Tobacco Use Smoking Status *Q: Never Smoker - Caffeine Use Caffeine Use: Reports: Coffee ED ROS GENERAL - Review of Systems Review Of Systems: See Below Constitutional: Reports: No Symptoms HEENT: Reports: No Symptoms Respiratory: Reports: No Symptoms Cardiovascular: Reports: No Symptoms GI/Abdominal: Reports: Nausea, Vomiting : Reports: No Symptoms Musculoskeletal: Reports: No Symptoms Skin: Reports: No Symptoms Neurological: Reports: Dizziness ED EXAM, NEURO - Physical Exam Exam: See Below Text/Narrative:: General: Male, ill-appearing, alert and oriented x3 HEENT: head is atraumatic normocephalic, eyes pupils equal round reactive to light, sclera clear no conjunctivitis appreciated, extraocular eye movements intact. Ears tympanic membranes clear and hurt[place] landmarks and light reflex are present bilaterally canals are clear. Nose no septal deviation, nares are clear, no blood present. Mouth mucosa is moist and pink no erythema or exudate noted in soft palate, tongue is midline uvula is midline, dentition is intact. Neck: Supple no thyromegaly no tracheal deviation. Nodes: Cervical nodes subclavicular nodes nontender no palpable lymphadenopathy noted. Lungs: clear to auscultation bilaterally with symmetrical respirations, no adventitious noise appreciated. CV: Regular rate and rhythm S1 and S2 appreciated no murmurs rubs or gallops noted. Abdomen: Soft, nontender, no palpable masses or organomegaly appreciated, no distention no guarding bowel sounds are present, . Neuro: Cranial nerves II test with pupillary light reflex 4 mm to 2 mm bilaterally, CN III test pupillary constriction, limited elevation and eye abduction bilaterally, CN IV downward movement of eyes bilaterally, CN V good jaw movement, CN lateral deviation of the eyes bilaterally to finger movement , CN VII symmetrical smile shows teeth without difficulty, CN VIII pass finger rub to ears bilaterally, CN IX adequate voice and tone, CN X adequate voice and tone no difficulty swallowing, CN XI can shrug shoulders without difficulty, CN XII can stick tongue out without difficulty, cranial nerves II to XII intact as tested, Head impulse test: Negative loss of fixation with corrective saccades when head turned to the bilateral Nystagmus: unidirectional, horizontal 0-beating nystagmus Skew deviation: Slight saccades correction can be appreciated with the uncover test over the right eye Skin: Warm and dry, intact Extremities: No lower extremity edema appreciated, pedal pulse is +2. Course - Vital Signs Last Recorded V/S: Last Vital Signs Temp 96.8 F 04/14/18 14:09 Pulse 70 04/14/18 14:09 Resp 14 04/14/18 14:09 BP 184/99 H 04/14/18 14:09 Pulse Ox - Orders/Labs/Meds Orders: Active Orders 24 hr Category Date Time Status Peripheral IV Care [RC] . DIRECTED Care 04/14/18 14:56 Active Peripheral IV Care [RC] . DIRECTED Care 04/14/18 15:04 Active Iopamidol [Isovue-370 (76%)] Med 04/14/18 15:15 Active 100 ml IV . DIRECTED Lactated Ringers [Ringers, Lactated] 1,000 ml Med 04/14/18 15:00 Active IV .BOLUS Sodium Chloride 0.9% [Normal Saline] 100 ml Med 04/14/18 15:15 Active IV ASDIRECTED Sodium Chloride 0.9% [Saline Flush] Med 04/14/18 14:54 Active 10 ml FLUSH ASDIRECTED PRN Sodium Chloride 0.9% [Saline Flush] Med 04/14/18 15:04 Active 10 ml FLUSH ASDIRECTED PRN ED Antiemetic Medication Reflex [OM.PC] Click to Edit Ot 04/14/18 14:54 Ordered Peripheral IV Insertion Adult [OM.PC] Urgent Oth 04/14/18 14:54 Ordered Peripheral IV Insertion Adult [OM.PC] Urgent Oth 04/14/18 15:04 Ordered Medication Orders Lactated Ringer's (Ringers, Lactated) 1,000 mls @ 500 mls/hr IV .BOLUS HA Last Admin: 04/14/18 16:07 Dose: 500 mls/hr Sodium Chloride (Normal Saline) 100 mls @ 3 mls/sec IV ASDIRECTED HA Last Admin: 04/14/18 16:38 Dose: 3 mls/sec Iopamidol (Isovue-370 (76%)) 100 ml IV . DIRECTED HA Last Admin: 04/14/18 16:38 Dose: 100 ml Sodium Chloride (Saline Flush) 10 ml FLUSH ASDIRECTED PRN PRN Reason: Keep Vein Open Last Admin: 04/14/18 15:20 Dose: 10 ml Sodium Chloride (Saline Flush) 10 ml FLUSH ASDIRECTED PRN PRN Reason: Keep Vein Open Last Admin: 04/14/18 16:38 Dose: 10 ml Labs: Laboratory Tests 04/14/18 04/14/18 04/14/18 Range/Units 15:17 15:17 15:17 WBC 6.7 (4.5-11.0) K/uL RBC 4.82 (4.30-5.90) M/uL Hgb 14.1 (12.0-15.0) g/dL Hct 41.4 (40.0-54.0) % MCV 86 (80-98) fL MCH 29 (27-31) pg MCHC 34 (32-36) % Plt Count 194 (150-400) K/uL Neut % (Auto) 68 H (36-66) % Lymph % (Auto) 19 L (24-44) % [place] % (Auto) 11 H (2-6) % Eos % (Auto) 3 (2-4) % Baso % (Auto) 0 (0-1) % PT 10.5 (9.5-12.0) sec INR 0.95 (0.80-1.20) APTT 23.6 L (27.0-36.0) sec Sodium 139 L (140-148) mmol/L Potassium 3.9 (3.6-5.2) mmol/L Chloride 101 (100-108) mmol/L Carbon Dioxide 29 (21-32) mmol/L Anion Gap 12.9 (5.0-14.0) mmol/L BUN 17 (7-18) mg/dL Creatinine 1.0 (0.8-1.3) mg/dL Est Cr Clr Drug Dosing 81.91 mL/min Estimated GFR (MDRD) > 60 (>60) Glucose 178 H (74-106) mg/dL Lactic Acid (0.4-2.0) mmol/L Calcium 9.1 (8.5-10.1) mg/dL Total Bilirubin 0.7 (0.2-1.0) mg/dL AST 18 (15-37) U/L ALT 34 (12-78) U/L Alkaline Phosphatase 63 (46-116) U/L Troponin I < 0.017 (0.000-0.056) ng/mL Total Protein 7.2 (6.4-8.2) g/dL Albumin 3.7 (3.4-5.0) g/dL Globulin 3.5 (2.3-3.5) g/dL Albumin/Globulin Ratio 1.1 L (1.2-2.2) 04/14/18 Range/Units 15:17 WBC (4.5-11.0) K/uL RBC (4.30-5.90) M/uL Hgb (12.0-15.0) g/dL Hct (40.0-54.0) % MCV (80-98) fL MCH (27-31) pg MCHC (32-36) % Plt Count (150-400) K/uL Neut % (Auto) (36-66) % Lymph % (Auto) (24-44) % [place] % (Auto) (2-6) % Eos % (Auto) (2-4) % Baso % (Auto) (0-1) % PT (9.5-12.0) sec INR (0.80-1.20) APTT (27.0-36.0) sec Sodium (140-148) mmol/L Potassium (3.6-5.2) mmol/L Chloride (100-108) mmol/L Carbon Dioxide (21-32) mmol/L Anion Gap (5.0-14.0) mmol/L BUN (7-18) mg/dL Creatinine (0.8-1.3) mg/dL Est Cr Clr Drug Dosing mL/min Estimated GFR (MDRD) (>60) Glucose (74-106) mg/dL Lactic Acid 1.3 (0.4-2.0) mmol/L Calcium (8.5-10.1) mg/dL Total Bilirubin (0.2-1.0) mg/dL AST (15-37) U/L ALT (12-78) U/L Alkaline Phosphatase (46-116) U/L Troponin I (0.000-0.056) ng/mL Total Protein (6.4-8.2) g/dL Albumin (3.4-5.0) g/dL Globulin (2.3-3.5) g/dL Albumin/Globulin Ratio (1.2-2.2) Meds: Medications Generic Name Dose Route Start Last Admin Trade Name Freq PRN Reason Stop Dose Admin Lactated Ringer's 1,000 mls @ 500 mls/hr 04/14/18 15:00 04/14/18 16:07 Ringers, Lactated IV 500 mls/hr .BOLUS HA Administration Sodium Chloride 100 mls @ 3 mls/sec 04/14/18 15:15 04/14/18 16:38 Normal Saline IV 3 mls/sec ASDIRECTED HA Administration Iopamidol 100 ml 04/14/18 15:15 04/14/18 16:38 Isovue-370 (76%) IV 100 ml . DIRECTED HA Administration Sodium Chloride 10 ml 04/14/18 14:54 04/14/18 15:20 Saline Flush FLUSH 10 ml ASDIRECTED PRN Administration Keep Vein Open Sodium Chloride 10 ml 04/14/18 15:04 04/14/18 16:38 Saline Flush FLUSH 10 ml ASDIRECTED PRN Administration Keep Vein Open Discontinued Medications Generic Name Dose Route Start Last Admin Trade Name Freq PRN Reason Stop Dose Admin Ondansetron HCl 4 mg 04/14/18 14:54 04/14/18 15:20 Zofran IVPUSH 04/14/18 14:55 4 mg ONETIME ONE Administration Departure - Departure Time of Disposition: 17:29 Disposition: Refer to Observation Condition: Fair Clinical Impression: Dehydration, Dizziness - Discharge Information Referrals: Roney Gallo MD [Primary Care Provider] - Forms: ED Department Discharge - My Orders Last 24 Hours: My Active Orders 04/14/18 14:54 Sodium Chloride 0.9% [Saline Flush] 10 ml FLUSH ASDIRECTED PRN ED Antiemetic Medication Reflex [OM.PC] Click to Edit Peripheral IV Insertion Adult [OM.PC] Urgent 04/14/18 14:56 Peripheral IV Care [RC] . DIRECTED 04/14/18 15:00 Lactated Ringers [Ringers, Lactated] 1,000 ml IV .BOLUS 04/14/18 15:04 Peripheral IV Care [RC] . DIRECTED Sodium Chloride 0.9% [Saline Flush] 10 ml FLUSH ASDIRECTED PRN Peripheral IV Insertion Adult [OM.PC] Urgent 04/14/18 15:15 Iopamidol [Isovue-370 (76%)] 100 ml IV . DIRECTED Sodium Chloride 0.9% [Normal Saline] 100 ml IV ASDIRECTED - Assessment/Plan Last 24 Hours: My Active Orders 04/14/18 14:54 Sodium Chloride 0.9% [Saline Flush] 10 ml FLUSH ASDIRECTED PRN ED Antiemetic Medication Reflex [OM.PC] Click to Edit Peripheral IV Insertion Adult [OM.PC] Urgent 04/14/18 14:56 Peripheral IV Care [RC] . DIRECTED 04/14/18 15:00 Lactated Ringers [Ringers, Lactated] 1,000 ml IV .BOLUS 04/14/18 15:04 Peripheral IV Care [RC] . DIRECTED Sodium Chloride 0.9% [Saline Flush] 10 ml FLUSH ASDIRECTED PRN Peripheral IV Insertion Adult [OM.PC] Urgent 04/14/18 15:15 Iopamidol [Isovue-370 (76%)] 100 ml IV . DIRECTED Sodium Chloride 0.9% [Normal Saline] 100 ml IV ASDIRECTED Plan: Assessment Acuity = acute Site and laterality = dizzy Etiology = unknown etiology Manifestation : nausea, vomiting, difficulty with ambulationh] Location of injury = Home Lab values = CBC, CMP, lactic acid, INR within normal limits CTA head shows no acute process Plan Because he is still feeling poorly after fluids and treatment call the hospitalist rehabilitation clerk at [phone] he agreed to presents emergency department for admission and further evaluation This note was dictated using [employer] voice recognition software please call with any questions on syntax or grammar.
[2018-04-14] MEDS ORDERED: Sodium Chloride 0.9% 100 ML IV SCH (15:15)
[2018-04-14] MEDS ORDERED: Iopamidol 755 Mg/ML 100 ML Bottle IV SCH (15:15)
--- NOTE | 2018-04-14 17:00 | CRLCT ---
INDICATION: Difficulty walking, abnormally skewed left eye. TECHNIQUE: High-resolution axial CT images were acquired through the head following the rapid intravenous administration of iodinated contrast. Multiplanar MIPS of the cranial vasculature were performed as well. FINDINGS: There is no large vessel occlusion or significant intracranial stenosis. No cerebral aneurysm or evidence for vascular malformation is identified. The brain parenchyma is unremarkable. IMPRESSION: Unremarkable head CTA. Please note that all CT scans at this facility use dose modulation, iterative reconstruction, and/or weight-based dosing when appropriate to reduce radiation dose to as low as reasonably achievable. Dictated by Nahid Mike MD @ Apr 15 2018 12:14PM Signed by Dr. Nahid Mike @ Apr 15 2018 12:26PM
[2018-04-14] MEDS ORDERED: LORazepam 2 MG/ML SDV IVPUSH ONE (17:23)
[2018-04-14] MEDS ORDERED: Lactated Ringers 1,000 ML IV ONE (17:59)
--- NOTE | 2018-04-14 18:44 | PCM.HP ---
H&P History of Present Illness - General Date of Service: 04/14/18 Admit Problem/Dx: Admission Diagnosis/Problem Admission Diagnosis/Problem Vertigo Source of Information: Patient, Family, Provider, RN Notes Reviewed History Limitations: Reports: No Limitations - History of Present Illness Initial Comments - Free Text/Narative: Mr. Chin is a 63-year-old gentleman who is admitted through the emergency department with severe nausea vomiting, dehydration, secondary to vertigo/ imbalance. He is had one radius episode of positional vertigo that was nowhere near as bad as this. He feels that symptoms are different than what he previously experienced in that they have been continuous over the past 3 days. As a result he's had no oral intake over the last 3 days with ongoing nausea and vomiting. He has a history of malignant melanoma and is status post immune modulated chemotherapy done at the [facility] in [place]. Apparently this has worked well and up until this point there has been no evidence of recurrent melanoma. He has been experiencing wrist and hand swelling with stiffness that has become fairly severe. His oncologist at [place] feels that this may be a side effect related to his recent chemotherapy. He currently denies any focal neurologic deficits, CT scan of the head with contrast done in the emergency department shows no evidence of intracranial hemorrhage, infarct, or mass. - Related Data Allergies/Adverse Reactions: Allergies Allergy/AdvReac Type Severity Reaction Status Date / Time atorvastatin AdvReac Muscle Verified 04/14/18 13:57 Aches meperidine AdvReac Nausea and Verified 04/14/18 13:57 Vomiting morphine AdvReac Nausea Verified 04/14/18 13:57 Home Medications: Home Meds Aspirin [Ecotrin] 81 mg PO DAILY 07/12/15 [History] Diltiazem HCl [Diltiazem ER] 240 mg PO DAILY 07/12/15 [History] Insulin Detemir [Levemir Flextouch] 50 units SQ BEDTIME 07/12/15 [History] Losartan [Cozaar] 100 mg PO DAILY 07/12/15 [History] Omeprazole 20 mg PO ACBREAKFAST 07/12/15 [History] metFORMIN [Glucophage] 850 mg PO BIDMEALS 07/12/15 [History] Insulin Aspart [NovoLOG] 25 units SUBCUT TIDMEALS 02/11/16 [History] DULoxetine [Cymbalta] 60 mg PO DAILY 07/01/17 [History] Naproxen Sodium [Aleve] 440 mg PO BID 07/01/17 [History] Valsartan/Hydrochlorothiazide [Valsartan-Hctz 80-12.5 mg Tab] 1 tab PO DAILY 08/13 [History] Past Medical History HEENT History: Reports: Impaired Vision Other HEENT History: wears glasses Cardiovascular History: Reports: High Cholesterol, Hypertension Respiratory History: Reports: Sleep Apnea Gastrointestinal History: Reports: GERD, Other (See Below) Other Gastrointestinal History: ulcer Genitourinary History: Reports: Renal Calculus Musculoskeletal History: Reports: Arthritis Neurological History: Reports: Head Trauma Endocrine/Metabolic History: Reports: Diabetes, Type II, Obesity/BMI 30+ Oncologic (Cancer) History: Reports: Other (See Below) Other Oncologic History: melanoma Dermatologic History: Reports: Melanoma Other Dermatologic History: left forehead - Infectious Disease History Infectious Disease History: Reports: Chicken Pox, Measles - Past Surgical History HEENT Surgical History: Reports: None Cardiovascular Surgical History: Reports: None Respiratory Surgical History: Reports: None GI Surgical History: Reports: Colonoscopy, Hernia Repair/Other Male Surgical History: Reports: None Endocrine Surgical History: Reports: None Musculoskeletal Surgical History: Reports: Arthroscopic Knee, Knee Replacement Dermatological Surgical History: Reports: None Social & Family History - Family History Family Medical History: Noncontributory - Tobacco Use Smoking Status *Q: Never Smoker - Caffeine Use Caffeine Use: Reports: Coffee H&P Review of Systems - Review of Systems: Review Of Systems: See Below General: Reports: Weakness, Diaphoresis, Decreased Appetite. Denies: Fever, Chills HEENT: Reports: No Symptoms Pulmonary: Reports: No Symptoms Cardiovascular: Reports: No Symptoms Gastrointestinal: Reports: Decreased Appetite, Nausea, Vomiting. Denies: Abdominal Pain, Black Stool, Bloody Stool, Constipation, Diarrhea, Difficulty Swallowing, Distension Genitourinary: Reports: No Symptoms Musculoskeletal: Reports: Other (Wrist and MCP swelling with stiffness) Skin: Reports: No Symptoms Psychiatric: Reports: No Symptoms Neurological: Reports: No Symptoms Hematologic/Lymphatic: Reports: No Symptoms Immunologic: Reports: No Symptoms Exam - Exam Exam: See Below - Vital Signs Vital Signs: Last Vital Signs Temp 96.8 F 04/14/18 14:09 Pulse 70 04/14/18 14:09 Resp 14 04/14/18 14:09 BP 184/99 H 04/14/18 14:09 Pulse Ox Weight: 290 lb - Exam Quality Assessment: DVT Prophylaxis General: Alert, Oriented, Cooperative, Moderate Distress HEENT: Conjunctiva Clear, Hearing Intact, Normal Nasal Septum, Posterior Pharynx Clear, Pupils Equal, Other (No nystagmus on exam). No: Mucosa Moist & [place] Neck: Supple, Trachea Midline, +2 Carotid Pulse wo Bruit Lungs: Clear to Auscultation, Normal Respiratory Effort Cardiovascular: Regular Rate, Regular Rhythm, Normal S1, Normal S2. No: Systolic Murmur, Diastolic Murmur GI/Abdominal Exam: Soft, Non-Tender, No Organomegaly, No Distention Extremities: Non-Tender, No Pedal Edema Skin: Warm, Dry, Intact Neurological: Cranial Nerves Intact, Strength Equal Bilateral, Normal Speech, Normal Tone, Sensation Intact. No: Normal Gait, Focal Deficit Neuro Extensive - Mental Status: Alert, Oriented x3, Normal Mood/Affect, Normal Cognition, Memory Intact - Patient Data Lab Results Last 24 hrs: Laboratory Results - last 24 hr 04/14/18 04/14/18 04/14/18 Range/Units 15:17 15:17 15:17 WBC 6.7 (4.5-11.0) K/uL RBC 4.82 (4.30-5.90) M/uL Hgb 14.1 (12.0-15.0) g/dL Hct 41.4 (40.0-54.0) % MCV 86 (80-98) fL MCH 29 (27-31) pg MCHC 34 (32-36) % Plt Count 194 (150-400) K/uL Neut % (Auto) 68 H (36-66) % Lymph % (Auto) 19 L (24-44) % [place] % (Auto) 11 H (2-6) % Eos % (Auto) 3 (2-4) % Baso % (Auto) 0 (0-1) % PT 10.5 (9.5-12.0) sec INR 0.95 (0.80-1.20) APTT 23.6 L (27.0-36.0) sec Sodium 139 L (140-148) mmol/L Potassium 3.9 (3.6-5.2) mmol/L Chloride 101 (100-108) mmol/L Carbon Dioxide 29 (21-32) mmol/L Anion Gap 12.9 (5.0-14.0) mmol/L BUN 17 (7-18) mg/dL Creatinine 1.0 (0.8-1.3) mg/dL Est Cr Clr Drug Dosing 81.91 mL/min Estimated GFR (MDRD) > 60 (>60) Glucose 178 H (74-106) mg/dL Lactic Acid (0.4-2.0) mmol/L Calcium 9.1 (8.5-10.1) mg/dL Total Bilirubin 0.7 (0.2-1.0) mg/dL AST 18 (15-37) U/L ALT 34 (12-78) U/L Alkaline Phosphatase 63 (46-116) U/L Troponin I < 0.017 (0.000-0.056) ng/mL Total Protein 7.2 (6.4-8.2) g/dL Albumin 3.7 (3.4-5.0) g/dL Globulin 3.5 (2.3-3.5) g/dL Albumin/Globulin Ratio 1.1 L (1.2-2.2) 04/14/18 Range/Units 15:17 WBC (4.5-11.0) K/uL RBC (4.30-5.90) M/uL Hgb (12.0-15.0) g/dL Hct (40.0-54.0) % MCV (80-98) fL MCH (27-31) pg MCHC (32-36) % Plt Count (150-400) K/uL Neut % (Auto) (36-66) % Lymph % (Auto) (24-44) % [place] % (Auto) (2-6) % Eos % (Auto) (2-4) % Baso % (Auto) (0-1) % PT (9.5-12.0) sec INR (0.80-1.20) APTT (27.0-36.0) sec Sodium (140-148) mmol/L Potassium (3.6-5.2) mmol/L Chloride (100-108) mmol/L Carbon Dioxide (21-32) mmol/L Anion Gap (5.0-14.0) mmol/L BUN (7-18) mg/dL Creatinine (0.8-1.3) mg/dL Est Cr Clr Drug Dosing mL/min Estimated GFR (MDRD) (>60) Glucose (74-106) mg/dL Lactic Acid 1.3 (0.4-2.0) mmol/L Calcium (8.5-10.1) mg/dL Total Bilirubin (0.2-1.0) mg/dL AST (15-37) U/L ALT (12-78) U/L Alkaline Phosphatase (46-116) U/L Troponin I (0.000-0.056) ng/mL Total Protein (6.4-8.2) g/dL Albumin (3.4-5.0) g/dL Globulin (2.3-3.5) g/dL Albumin/Globulin Ratio (1.2-2.2) Result Diagrams: 04/14/18 15:17 04/14/18 15:17 *Q Meaningful Use (ADM) - VTE Risk Assess *Q Each Risk Factor Represents 1 Point: Obesity ( BMI > 25 kg/m2) Total Score 1 Point Risk Factors: 1 Each Risk Factor Represents 2 Points: Age 60 - 74 Years, Malignancy (present or previous) Total Score 2 Point Risk Factors: 4 Each Risk Factor Represents 3 Points: None Total Score 3 Point Risk Factors: 0 Each Risk Factor Represents 5 Points: None Total Score 5 Point Risk Factors: 0 Venous Thromboembolism Risk Factor Score *Q: 5 Problem List Initiated/Reviewed/Updated: Yes Orders Last 24hrs: Active Orders 24 hr Category Date Time Status Patient Status Manage Transfer [TRANSFER] Routine ADT 04/14/18 18:30 Ordered Peripheral IV Care [RC] . DIRECTED Care 04/14/18 14:56 Active Peripheral IV Care [RC] . DIRECTED Care 04/14/18 15:04 Active Iopamidol [Isovue-370 (76%)] Med 04/14/18 15:15 Active 100 ml IV . DIRECTED Lactated Ringers [Ringers, Lactated] 1,000 ml Med 04/14/18 15:00 Active IV .BOLUS Lactated Ringers [Ringers, Lactated] 1,000 ml Med 04/14/18 17:59 Active IV BOLUS Sodium Chloride 0.9% [Normal Saline] 100 ml Med 04/14/18 15:15 Active IV ASDIRECTED Sodium Chloride 0.9% [Saline Flush] Med 04/14/18 14:54 Active 10 ml FLUSH ASDIRECTED PRN Sodium Chloride 0.9% [Saline Flush] Med 04/14/18 15:04 Active 10 ml FLUSH ASDIRECTED PRN ED Antiemetic Medication Reflex [OM.PC] Click to Edit Oth 04/14/18 14:54 Ordered Peripheral IV Insertion Adult [OM.PC] Urgent Oth 04/14/18 14:54 Ordered Peripheral IV Insertion Adult [OM.PC] Urgent Oth 04/14/18 15:04 Ordered Resuscitation Status Routine Resus Stat 04/14/18 18:33 Ordered Medication Orders Lactated Ringer's (Ringers, Lactated) 1,000 mls @ 500 mls/hr IV .BOLUS [facility] Last Admin: 04/14/18 16:07 Dose: 500 mls/hr Sodium Chloride (Normal Saline) 100 mls @ 3 mls/sec IV ASDIRECTED [facility] Last Admin: 04/14/18 16:38 Dose: 3 mls/sec Lactated Ringer's (Ringers, Lactated) 1,000 mls @ 250 mls/hr IV BOLUS ONE Stop: 04/14/18 21:58 Iopamidol (Isovue-370 (76%)) 100 ml IV . DIRECTED [facility] Last Admin: 04/14/18 16:38 Dose: 100 ml Sodium Chloride (Saline Flush) 10 ml FLUSH ASDIRECTED PRN PRN Reason: Keep Vein Open Last Admin: 04/14/18 15:20 Dose: 10 ml Sodium Chloride (Saline Flush) 10 ml FLUSH ASDIRECTED PRN PRN Reason: Keep Vein Open Last Admin: 04/14/18 16:38 Dose: 10 ml Assessment/Plan Comment:: ASSESSMENT AND PLAN SEVERE NAUSEA AND VOMITING WITH DEHYDRATION-secondary to ongoing vertigo/ imbalance -IV fluids for hydration -Zofran and/or lorazepam as needed for nausea and vomiting IMBALANCE/VERTIGO-differential includes posterior circulation CVA versus positional vertigo. He's had one previous episode of positional vertigo, this is much more severe and different from what he experienced in the past. CT scan of the head shows no evidence of acute CVA, hemorrhage, or mass. -Occupational therapy consult in a.m. -MRI of the brain with contrast in a.m. TYPE 2 DIABETES MELLITUS -Hold metformin and scheduled NovoLog insulin -Continue usual dose of Lantus -Low-dose sliding scale NovoLog -4 times a day glucometers MALIGNANT MELANOMA-no evidence of active disease based on most recent evaluation MAINTENANCE ISSUES -DVT prophylaxis; Lovenox 40 mg subcutaneous daily -GI prophylaxis; Protonix 40 mg IV daily -Valles catheter; not indicated -Nutrition; consistent carb diet -Nicotine dependence; not required CODE STATUS-FULL CODE ADMISSION STATUS-patient will be admitted to inpatient status, expect at least a 2 night hospital stay for evaluation and management of problems as outlined above. At the time of this admission I do not reasonably expected evaluation and management of this problem will require more than a 96 hour hospital stay. DISPOSITION-anticipate discharge to home after the hospital stay. PRIMARY CARE PROVIDER-Dr. Gallo
[2018-04-14] MEDS ORDERED: LORazepam 2 MG/ML SDV IV PRN (19:32)
[2018-04-14] MEDS ORDERED: 50% Dextrose in Water 50 ML Syringe IV PRN (19:32)
[2018-04-14] MEDS ORDERED: Acetaminophen 325 MG Tab PO PRN (19:32)
[2018-04-14] MEDS ORDERED: Glucose Gel 15 GM in 37.5 GM Tube PO PRN (19:32)
[2018-04-14] MEDS ORDERED: Enoxaparin 40 MG/0.4 ML Syringe SUBCUT SCH (19:32)
[2018-04-14] MEDS ORDERED: Pantoprazole 40 MG Vial IVPUSH ONE (20:00)
[2018-04-14] MEDS ORDERED: Insulin Glargine,Human Rec. Analog 100 Units/ML 3 ML Pen SUBCUT SCH (21:00)
[2018-04-14] MEDS: Insulin Lispro 100 Unit/ML 3 ML KwikPen SUBCUT SCH (21:25)
[2018-04-14] MEDS: Lactated Ringers 1,000 ML IV SCH (22:05)
[2018-04-15] MEDS: Lactated Ringers 1,000 ML IV SCH (06:26)
[2018-04-15] MEDS ORDERED: Pantoprazole 40 MG Vial IVPUSH SCH (07:30)
[2018-04-15] MEDS: Ondansetron 4 MG/2 ML SDV IV PRN (08:08)
[2018-04-15] MEDS ORDERED: Aspirin 81 MG Tab.EC PO SCH ×2 (09:00→21:00)
[2018-04-15] MEDS: DULoxetine 30 MG Cap PO SCH ×2 (09:36→21:00)
[2018-04-15] MEDS: Diltiazem 120 MG Cap.CD PO SCH (09:37)
[2018-04-15] MEDS: Insulin Lispro 100 Unit/ML 3 ML KwikPen SUBCUT SCH ×4 (09:40→21:35)
--- NOTE | 2018-04-15 10:43 | PCM.PN ---
- General Info Date of Service: 04/15/18 Subjective Update: Mr. Chin has shown modest improvement since admission, less dizziness, and better control of nausea and vomiting. Tolerating light diet thus far. Reports diplopia today, which had been occurring intermittently over the past few days. Functional Status: Reports: Pain Controlled, Tolerating Diet, Urinating - Review of Systems General: Reports: Weakness. Denies: Fever, Chills HEENT: Reports: Other (Continued imbalance/vertigo, diplopia) Pulmonary: Reports: No Symptoms Cardiovascular: Reports: No Symptoms Gastrointestinal: Reports: Nausea, Vomiting. Denies: Abdominal Pain, Diarrhea, Difficulty Swallowing - Patient Data Vitals - Most Recent: Last Vital Signs Temp 95.7 F 04/15/18 07:00 Pulse 84 04/15/18 09:37 Resp 18 04/15/18 07:00 BP 162/86 H 04/15/18 09:37 Pulse Ox 94 L 04/15/18 07:57 Weight - Most Recent: 293 lb 0.015 oz I&O - Last 24 Hours: Intake & Output 04/14/18 04/15/18 04/15/18 22:59 06:59 14:59 Intake Total 1559 450 Output Total 350 200 400 Balance -350 1359 50 Lab Results Last 24 Hours: Laboratory Results - last 24 hr 04/14/18 04/14/18 04/14/18 Range/Units 15:17 15:17 15:17 WBC 6.7 (4.5-11.0) K/uL RBC 4.82 (4.30-5.90) M/uL Hgb 14.1 (12.0-15.0) g/dL Hct 41.4 (40.0-54.0) % MCV 86 (80-98) fL MCH 29 (27-31) pg MCHC 34 (32-36) % Plt Count 194 (150-400) K/uL Neut % (Auto) 68 H (36-66) % Lymph % (Auto) 19 L (24-44) % [place] % (Auto) 11 H (2-6) % Eos % (Auto) 3 (2-4) % Baso % (Auto) 0 (0-1) % PT 10.5 (9.5-12.0) sec INR 0.95 (0.80-1.20) APTT 23.6 L (27.0-36.0) sec Sodium 139 L (140-148) mmol/L Potassium 3.9 (3.6-5.2) mmol/L Chloride 101 (100-108) mmol/L Carbon Dioxide 29 (21-32) mmol/L Anion Gap 12.9 (5.0-14.0) mmol/L BUN 17 (7-18) mg/dL Creatinine 1.0 (0.8-1.3) mg/dL Est Cr Clr Drug Dosing 81.91 mL/min Estimated GFR (MDRD) > 60 (>60) Glucose 178 H (74-106) mg/dL Lactic Acid (0.4-2.0) mmol/L Calcium 9.1 (8.5-10.1) mg/dL Total Bilirubin 0.7 (0.2-1.0) mg/dL AST 18 (15-37) U/L ALT 34 (12-78) U/L Alkaline Phosphatase 63 (46-116) U/L Troponin I < 0.017 (0.000-0.056) ng/mL Total Protein 7.2 (6.4-8.2) g/dL Albumin 3.7 (3.4-5.0) g/dL Globulin 3.5 (2.3-3.5) g/dL Albumin/Globulin Ratio 1.1 L (1.2-2.2) 04/14/ Range/Units 15:17 WBC (4.5-11.0) K/uL RBC (4.30-5.90) M/uL Hgb (12.0-15.0) g/dL Hct (40.0-54.0) % MCV (80-98) fL MCH (27-31) pg MCHC (32-36) % Plt Count (150-400) K/uL Neut % (Auto) (36-66) % Lymph % (Auto) (24-44) % [place] % (Auto) (2-6) % Eos % (Auto) (2-4) % Baso % (Auto) (0-1) % PT (9.5-12.0) sec INR (0.80-1.20) APTT (27.0-36.0) sec Sodium (140-148) mmol/L Potassium (3.6-5.2) mmol/L Chloride (100-108) mmol/L Carbon Dioxide (21-32) mmol/L Anion Gap (5.0-14.0) mmol/L BUN (7-18) mg/dL Creatinine (0.8-1.3) mg/dL Est Cr Clr Drug Dosing mL/min Estimated GFR (MDRD) (>60) Glucose (74-106) mg/dL Lactic Acid 1.3 (0.4-2.0) mmol/L Calcium (8.5-10.1) mg/dL Total Bilirubin (0.2-1.0) mg/dL AST (15-37) U/L ALT (12-78) U/L Alkaline Phosphatase (46-116) U/L Troponin I (0.000-0.056) ng/mL Total Protein (6.4-8.2) g/dL Albumin (3.4-5.0) g/dL Globulin (2.3-3.5) g/dL Albumin/Globulin Ratio (1.2-2.2) Med Orders - Current: Current Medications Acetaminophen (Tylenol) 650 mg PO Q4H PRN PRN Reason: Pain (Mild 1-3)/fever Aspirin (Halfprin) 81 mg PO DAILY [facility] Dextrose (Glutose 15) 15 gm PO ONETIME PRN PRN Reason: Hypoglycemia Dextrose/Water (Dextrose 50% In Water) 50 ml IV ONETIME PRN PRN Reason: Hypoglycemia Diltiazem HCl (Cardizem Cd) 240 mg PO DAILY [facility] Last Admin: 04/15/18 09:37 Dose: 240 mg Duloxetine HCl (Cymbalta) 60 mg PO DAILY [facility] Last Admin: 04/15/18 09:36 Dose: 60 mg Enoxaparin Sodium (Lovenox) 40 mg SUBCUT Q24H [facility] Hydrochlorothiazide (Hydrochlorothiazide) 12.5 mg PO DAILY [facility] Lactated Ringer's (Ringers, Lactated) 1,000 mls @ 125 mls/hr IV ASDIRECTED [facility] Last Admin: 04/15/18 06:26 Dose: 125 mls/hr Insulin Glargine (Lantus Solostar) 50 units SUBCUT BEDTIME [facility] Insulin Human Lispro (Humalog) 0 unit SUBCUT QIDACANDBED [facility]; Protocol Last Admin: 04/15/18 09:40 Dose: Not Given Lorazepam (Ativan) 0.5 mg IV Q2H PRN PRN Reason: Nausea/Vomiting Ondansetron HCl (Zofran) 4 mg IV Q4H PRN PRN Reason: Nausea/Vomiting Last Admin: 04/15/18 08:08 Dose: 4 mg Pantoprazole Sodium (Protonix Iv) 40 mg IVPUSH ACBREAKFAST [facility] Last Admin: 04/15/18 09:36 Dose: 40 mg Sodium Chloride (Saline Flush) 10 ml FLUSH ASDIRECTED PRN PRN Reason: Keep Vein Open Valsartan (Diovan) 80 mg PO DAILY [facility] Last Admin: 04/15/18 09:36 Dose: 80 mg Discontinued Medications Enoxaparin Sodium (Lovenox) 40 mg SUBCUT DAILY [facility] Last Admin: 04/14/18 20:06 Dose: 40 mg Lactated Ringer's (Ringers, Lactated) 1,000 mls @ 500 mls/hr IV .BOLUS [facility] Last Admin: 04/14/18 16:07 Dose: 500 mls/hr Sodium Chloride (Normal Saline) 100 mls @ 3 mls/sec IV ASDIRECTED [facility] Last Admin: 04/14/18 16:38 Dose: 3 mls/sec Lactated Ringer's (Ringers, Lactated) 1,000 mls @ 250 mls/hr IV BOLUS ONE Stop: 04/14/18 21:58 Last Admin: 04/14/18 22:29 Dose: Not Given Insulin Glargine (Lantus Solostar) 50 units SUBCUT BEDTIME [facility] Last Admin: 04/14/18 21:28 Dose: 50 units Iopamidol (Isovue-370 (76%)) 100 ml IV . DIRECTED [facility] Last Admin: 04/14/18 16:38 Dose: 100 ml Lorazepam (Ativan) 0.5 mg IVPUSH ONETIME ONE Stop: 04/14/18 17:24 Last Admin: 04/14/18 18:16 Dose: 0.5 mg Ondansetron HCl (Zofran) 4 mg IVPUSH ONETIME ONE Stop: 04/14/18 14:55 Last Admin: 04/14/18 15:20 Dose: 4 mg Pantoprazole Sodium (Protonix Iv) 40 mg IVPUSH ONETIME ONE Stop: 04/14/18 20:01 Last Admin: 04/14/18 20:07 Dose: 40 mg Sodium Chloride (Saline Flush) 10 ml FLUSH ASDIRECTED PRN PRN Reason: Keep Vein Open Last Admin: 04/14/18 15:20 Dose: 10 ml Sodium Chloride (Saline Flush) 10 ml FLUSH ASDIRECTED PRN PRN Reason: Keep Vein Open Last Admin: 04/14/18 16:38 Dose: 10 ml - Exam Quality Assessment: DVT Prophylaxis General: Alert, Oriented, Cooperative, Mild Distress Lungs: Clear to Auscultation, Normal Respiratory Effort Cardiovascular: Regular Rate, Regular Rhythm, No Murmurs GI/Abdominal Exam: Soft, Non-Tender, No Organomegaly, No Distention Extremities: Non-Tender, No Pedal Edema - Problem List Review Problem List Initiated/Reviewed/Updated: Yes - My Orders Last 24 Hours: My Active Orders 04/14/18 18:33 Resuscitation Status Routine 04/14/18 19:32 Patient Status [ADT] Routine Ambulate [RC] QID Blood Glucose Check, Bedside [RC] QIDACANDBED Diabetes Education [RC] Click to Edit Height and Weight [RC] DAILY Intake and Output [RC] QSHIFT Notify Provider Vital Signs [RC] ASDIRECTED Notify Provider [RC] .PRN Oxygen Therapy [RC] .PRN Peripheral IV Care [RC] Q12H Pulse Oximetry [RC] CONTINUOUS Up With Assistance [RC] ASDIRECTED Up to Chair [RC] QID VTE/DVT Education [RC] Per Unit Routine Vital Signs [RC] Q4H OT Evaluation and Treatment [CONS] Routine Acetaminophen [Tylenol] 650 mg PO Q4H PRN Dextrose 50% in Water 50 ml IV ONETIME PRN Dextrose [Glutose 15] 15 gm PO ONETIME PRN LORazepam [Ativan] 0.5 mg IV Q2H PRN Lactated Ringers [Ringers, Lactated] 1,000 ml IV ASDIRECTED Ondansetron [Zofran] 4 mg IV Q4H PRN Sodium Chloride 0.9% [Saline Flush] 10 ml FLUSH ASDIRECTED PRN Peripheral IV Insertion Adult [OM.PC] Routine 04/14/18 20:00 Insulin Lispro [HumaLOG] See Protocol SUBCUT QIDACANDBED 04/14/18 Dinner Consistent Carbohydrate Diet [DIET] 04/15/18 03:44 CPAP Noctural Home [RT BiPAP/CPAP] [RC] ASDIRECTED 04/15/18 07:30 Pantoprazole [ProTONIX IV] 40 mg IVPUSH ACBREAKFAST 04/15/18 08:00 Brain w wo Cont [MR] Stat 04/15/18 09:00 Aspirin [Halfprin] 81 mg PO DAILY DULoxetine [Cymbalta] 60 mg PO DAILY Diltiazem [Cardizem CD] 240 mg PO DAILY Valsartan [Diovan] 80 mg PO DAILY hydroCHLOROthiazide 12.5 mg PO DAILY 04/15/18 11:30 GLUCOSE POC LAB TO COLLECT [POC] QIDACANDBED 04/15/18 16:30 GLUCOSE POC LAB TO COLLECT [POC] QIDACANDBED 04/15/18 20:00 Enoxaparin [Lovenox] 40 mg SUBCUT Q24H 04/15/18 21:00 GLUCOSE POC LAB TO COLLECT [POC] QIDACANDBED Insulin Glarg,Human.Rec.Analog [LantUS Solostar] 50 units SUBCUT BEDTIME 04/16/18 07:30 GLUCOSE POC LAB TO COLLECT [POC] QIDACANDBED 04/16/18 11:30 GLUCOSE POC LAB TO COLLECT [POC] QIDACANDBED 04/16/18 16:30 GLUCOSE POC LAB TO COLLECT [POC] QIDACANDBED 04/16/18 21:00 GLUCOSE POC LAB TO COLLECT [POC] QIDACANDBED 04/17/18 07:30 GLUCOSE POC LAB TO COLLECT [POC] QIDACANDBED 04/17/18 11:30 GLUCOSE POC LAB TO COLLECT [POC] QIDACANDBED 04/17/18 16:30 GLUCOSE POC LAB TO COLLECT [POC] QIDACANDBED 04/17/18 21:00 GLUCOSE POC LAB TO COLLECT [POC] QIDACANDBED 04/18/18 07:30 GLUCOSE POC LAB TO COLLECT [POC] QIDACANDBED 04/18/18 11:30 GLUCOSE POC LAB TO COLLECT [POC] QIDACANDBED 04/18/18 16:30 GLUCOSE POC LAB TO COLLECT [POC] QIDACANDBED 04/18/18 21:00 GLUCOSE POC LAB TO COLLECT [POC] QIDACANDBED 04/19/18 07:30 GLUCOSE POC LAB TO COLLECT [POC] QIDACANDBED 04/19/18 11:30 GLUCOSE POC LAB TO COLLECT [POC] QIDACANDBED 04/19/18 16:30 GLUCOSE POC LAB TO COLLECT [POC] QIDACANDBED - Plan Plan:: ASSESSMENT AND PLAN SEVERE NAUSEA AND VOMITING WITH DEHYDRATION-secondary to ongoing vertigo/ imbalance, moderate improvement since admission -Saline lock IV -Zofran and/or lorazepam as needed for nausea and vomiting IMBALANCE/VERTIGO-differential includes posterior circulation CVA versus positional vertigo. He's had one previous episode of positional vertigo, this is much more severe and different from what he experienced in the past. CT scan of the head shows no evidence of acute CVA, hemorrhage, or mass. Double vision noted today, MRI is pending -Occupational therapy consult in a.m. -MRI of the brain with contrast in a.m. TYPE 2 DIABETES MELLITUS -Hold metformin and scheduled NovoLog insulin -Continue usual dose of Lantus -Low-dose sliding scale NovoLog -4 times a day glucometers MALIGNANT MELANOMA-no evidence of active disease based on most recent evaluation MAINTENANCE ISSUES -DVT prophylaxis; Lovenox 40 mg subcutaneous daily -GI prophylaxis; Protonix 40 mg IV daily -Valles catheter; not indicated -Nutrition; consistent carb diet -Nicotine dependence; not required CODE STATUS-FULL CODE ADMISSION STATUS-patient will be admitted to inpatient status, expect at least a 2 night hospital stay for evaluation and management of problems as outlined above. At the time of this admission I do not reasonably expected evaluation and management of this problem will require more than a 96 hour hospital stay. DISPOSITION-anticipate discharge to home after the hospital stay. PRIMARY CARE PROVIDER-Dr. Gallo
[2018-04-15] MEDS: Hydrochlorothiazide 12.5 MG Cap PO SCH (11:42)
[2018-04-15] MEDS ORDERED: Gadoteridol 279.3 MG/ML 20 ML SDV IV SCH (12:15)
--- NOTE | 2018-04-15 13:45 | MR ---
Brain w wo Cont CLINICAL HISTORY: Imbalance, history malignant melanoma COMPARISON: Prior CT brain TECHNIQUE: Multiple pulse sequences were obtained through the brain in the axial, coronal, and sagittal planes both pre-and post IV contrast infusion gadolinium-based contrast. All images were obtained on a 1.5 Kimberly unit. FINDINGS: There is a 6 x 6 mm focus of restricted diffusion in the middle of within the inferior cerebellar peduncle on the left. This shows low signal on T1 and high signal on T2 and FLAIR images. Postcontrast T1 images show no enhancement. No other focal lesion mass effect or hemorrhage is identified. Basal cisterns and sulci over the convexities are normal. Ventricles are normal for patient patient's age. IMPRESSION: Focal lesion in the left inferior cerebellar peduncle is most consistent with an acute or subacute ischemic infarct. There is no evidence of hemorrhage or enhancement.
[2018-04-15] MEDS ORDERED: Aspirin 325 MG Tab.EC PO SCH (14:00)
[2018-04-15] MEDS ORDERED: Clopidogrel 75 MG Tab PO SCH (14:00)
[2018-04-15] MEDS: Enoxaparin 40 MG/0.4 ML Syringe SUBCUT SCH (20:28)
[2018-04-15] MEDS: Aspirin 81 MG Tab.Chew PO SCH (21:00)
[2018-04-15] MEDS: Insulin Glargine,Human Rec. Analog 100 Units/ML 3 ML Pen SUBCUT SCH (21:35)
[2018-04-15] MEDS ORDERED: LORazepam 1 MG Tab PO ONE (23:44)
[2018-04-16] MEDS: Ondansetron 4 MG/2 ML SDV IV PRN (03:45)
[2018-04-16] MEDS: Ondansetron 4 MG Tab.DIS PO PRN (04:09)
[2018-04-16] MEDS: Insulin Lispro 100 Unit/ML 3 ML KwikPen SUBCUT SCH ×4 (08:34→21:31)
[2018-04-16] MEDS: Diltiazem 120 MG Cap.CD PO SCH (08:35)
[2018-04-16] MEDS: Pantoprazole 40 MG Tab.CR PO SCH (08:36)
[2018-04-16] MEDS: Aspirin 81 MG Tab.Chew PO SCH ×2 (08:37→21:33)
[2018-04-16] MEDS: DULoxetine 30 MG Cap PO SCH ×2 (08:38→21:34)
[2018-04-16] MEDS: Hydrochlorothiazide 12.5 MG Cap PO SCH ×2 (08:39→22:46)
--- NOTE | 2018-04-16 15:05 | PCM.PN ---
- General Info Date of Service: 04/16/18 Functional Status: Reports: Tolerating Diet, Ambulating, Urinating - Review of Systems General: Denies: Fever, Weakness, Chills Pulmonary: Reports: No Symptoms Cardiovascular: Reports: No Symptoms Gastrointestinal: Reports: No Symptoms Neurological: Reports: Other (Persistent imbalance, diplopia) - Patient Data Vitals - Most Recent: Last Vital Signs Temp 97.2 F 04/16/18 11:26 Pulse 81 04/16/18 11:26 Resp 16 04/16/18 11:26 BP 188/99 H 04/16/18 11:26 Pulse Ox 95 04/16/18 11:26 Weight - Most Recent: 289 lb 3.2 oz I&O - Last 24 Hours: Intake & Output 04/16/18 04/16/18 04/16/18 06:59 14:59 22:59 Intake Total 1200 Output Total 525 Balance 675 Med Orders - Current: Current Medications Acetaminophen (Tylenol) 650 mg PO Q4H PRN PRN Reason: Pain (Mild 1-3)/fever Aspirin (Aspirin) 162 mg PO DAILY [facility] Last Admin: 04/16/18 08:37 Dose: Not Given Dextrose (Glutose 15) 15 gm PO ONETIME PRN PRN Reason: Hypoglycemia Dextrose/Water (Dextrose 50% In Water) 50 ml IV ONETIME PRN PRN Reason: Hypoglycemia Diltiazem HCl (Cardizem Cd) 240 mg PO DAILY [facility] Last Admin: 04/16/18 08:35 Dose: 240 mg Duloxetine HCl (Cymbalta) 60 mg PO DAILY [facility] Last Admin: 04/16/18 08:38 Dose: Not Given Enoxaparin Sodium (Lovenox) 40 mg SUBCUT Q24H [facility] Last Admin: 04/15/18 20:28 Dose: 40 mg Hydrochlorothiazide (Hydrochlorothiazide) 12.5 mg PO DAILY [facility] Last Admin: 04/16/18 08:39 Dose: Not Given Insulin Glargine (Lantus Solostar) 50 units SUBCUT BEDTIME [facility] Last Admin: 04/15/18 21:35 Dose: 50 units Insulin Human Lispro (Humalog) 0 unit SUBCUT QIDACANDBED [facility]; Protocol Last Admin: 04/16/18 12:48 Dose: 4 unit Lorazepam (Ativan) 0.5 mg IV Q2H PRN PRN Reason: Nausea/Vomiting Last Admin: 04/15/18 11:22 Dose: 0.5 mg Ondansetron HCl (Zofran) 4 mg IV Q4H PRN PRN Reason: Nausea/Vomiting Last Admin: 04/15/18 08:08 Dose: 4 mg Ondansetron HCl (Zofran Odt) 4 mg PO Q4H PRN PRN Reason: Nausea/Vomiting Last Admin: 04/16/18 04:09 Dose: 4 mg Pantoprazole Sodium (Protonix) 40 mg PO ACBREAKFAST [facility] Last Admin: 04/16/18 08:36 Dose: 40 mg Sodium Chloride (Saline Flush) 10 ml FLUSH ASDIRECTED PRN PRN Reason: Keep Vein Open Valsartan (Diovan) 80 mg PO DAILY [facility] Last Admin: 04/16/18 08:36 Dose: 80 mg Discontinued Medications Aspirin (Halfprin) 81 mg PO DAILY [facility] Aspirin (Halfprin) 81 mg PO BEDTIME [facility] Aspirin (Ecotrin) 325 mg PO DAILY [facility] Last Admin: 04/15/18 16:47 Dose: Not Given Clopidogrel Bisulfate (Plavix) 75 mg PO DAILY [facility] Last Admin: 04/15/18 16:47 Dose: Not Given Enoxaparin Sodium (Lovenox) 40 mg SUBCUT DAILY [facility] Last Admin: 04/14/18 20:06 Dose: 40 mg Gadoteridol (Prohance) 20 ml IV . DIRECTED [facility] Stop: 04/15/18 12:16 Last Admin: 04/15/18 12:23 Dose: 20 ml Lactated Ringer's (Ringers, Lactated) 1,000 mls @ 500 mls/hr IV .BOLUS [facility] Last Admin: 04/14/18 16:07 Dose: 500 mls/hr Sodium Chloride (Normal Saline) 100 mls @ 3 mls/sec IV ASDIRECTED [facility] Last Admin: 04/14/18 16:38 Dose: 3 mls/sec Lactated Ringer's (Ringers, Lactated) 1,000 mls @ 250 mls/hr IV BOLUS ONE Stop: 04/14/18 21:58 Last Admin: 04/14/18 22:29 Dose: Not Given Lactated Ringer's (Ringers, Lactated) 1,000 mls @ 125 mls/hr IV ASDIRECTED [facility] Last Admin: 04/15/18 06:26 Dose: 125 mls/hr Insulin Glargine (Lantus Solostar) 50 units SUBCUT BEDTIME [facility] Last Admin: 04/14/18 21:28 Dose: 50 units Iopamidol (Isovue-370 (76%)) 100 ml IV . DIRECTED [facility] Last Admin: 04/14/18 16:38 Dose: 100 ml Lorazepam (Ativan) 0.5 mg IVPUSH ONETIME ONE Stop: 04/14/18 17:24 Last Admin: 04/14/18 18:16 Dose: 0.5 mg Lorazepam (Ativan) 1 mg PO ONETIME ONE Stop: 04/15/18 23:45 Last Admin: 04/16/18 00:24 Dose: 1 mg Ondansetron HCl (Zofran) 4 mg IVPUSH ONETIME ONE Stop: 04/14/18 14:55 Last Admin: 04/14/18 15:20 Dose: 4 mg Pantoprazole Sodium (Protonix Iv) 40 mg IVPUSH ACBREAKFAST [facility] Last Admin: 04/15/18 09:36 Dose: 40 mg Pantoprazole Sodium (Protonix Iv) 40 mg IVPUSH ONETIME ONE Stop: 04/14/18 20:01 Last Admin: 04/14/18 20:07 Dose: 40 mg Sodium Chloride (Saline Flush) 10 ml FLUSH ASDIRECTED PRN PRN Reason: Keep Vein Open Last Admin: 04/14/18 15:20 Dose: 10 ml Sodium Chloride (Saline Flush) 10 ml FLUSH ASDIRECTED PRN PRN Reason: Keep Vein Open Last Admin: 04/14/18 16:38 Dose: 10 ml - Exam Quality Assessment: DVT Prophylaxis General: Alert, Oriented, Cooperative, Mild Distress Lungs: Clear to Auscultation, Normal Respiratory Effort Cardiovascular: Regular Rate, Regular Rhythm, No Murmurs GI/Abdominal Exam: Soft, Non-Tender, No Organomegaly, No Distention Neurological: Normal Speech, Normal Tone, Strength Equal Bilateral, Sensation Intact, Other (Imbalance). No: Normal Gait - Problem List Review Problem List Initiated/Reviewed/Updated: Yes - My Orders Last 24 Hours: My Active Orders 04/15/18 16:18 Convert IV to Peripheral Lock [Convert IV to Saline Lock] [OM.PC] Routine 04/15/18 20:00 Enoxaparin [Lovenox] 40 mg SUBCUT Q24H 04/15/18 21:00 Insulin Glarg,Human.Rec.Analog [LantUS Solostar] 50 units SUBCUT BEDTIME 04/16/18 07:00 Echo Comp wo Cont [US] Urgent 04/16/18 07:30 Pantoprazole [ProTONIX] 40 mg PO ACBREAKFAST 04/16/18 09:00 Aspirin 162 mg PO DAILY 04/16/18 10:16 PT Evaluation and Treatment [CONS] Routine 04/16/18 16:30 GLUCOSE POC LAB TO COLLECT [POC] QIDACANDBED 04/16/18 21:00 GLUCOSE POC LAB TO COLLECT [POC] QIDACANDBED 04/17/18 07:30 GLUCOSE POC LAB TO COLLECT [POC] QIDACANDBED 04/17/18 11:30 GLUCOSE POC LAB TO COLLECT [POC] QIDACANDBED 04/17/18 16:30 GLUCOSE POC LAB TO COLLECT [POC] QIDACANDBED 04/17/18 21:00 GLUCOSE POC LAB TO COLLECT [POC] QIDACANDBED 04/18/18 07:30 GLUCOSE POC LAB TO COLLECT [POC] QIDACANDBED 04/18/18 11:30 GLUCOSE POC LAB TO COLLECT [POC] QIDACANDBED 04/18/18 16:30 GLUCOSE POC LAB TO COLLECT [POC] QIDACANDBED 04/18/18 21:00 GLUCOSE POC LAB TO COLLECT [POC] QIDACANDBED 04/19/18 07:30 GLUCOSE POC LAB TO COLLECT [POC] QIDACANDBED 04/19/18 11:30 GLUCOSE POC LAB TO COLLECT [POC] QIDACANDBED 04/19/18 16:30 GLUCOSE POC LAB TO COLLECT [POC] QIDACANDBED - Plan Plan:: ASSESSMENT AND PLAN SEVERE NAUSEA AND VOMITING WITH DEHYDRATION-essentially resolved -Saline lock IV -Zofran and/or lorazepam as needed for nausea and vomiting ACUTE CEREBELLAR CVA-symptoms of improved but he continues to experience diplopia and imbalance with standing -Physical therapy and occupational therapy -Aspirin 162 mg daily -Outpatient follow-up with neurology -Anticipate transfer to inpatient rehabilitation tomorrow TYPE 2 DIABETES MELLITUS -Hold metformin and scheduled NovoLog insulin -Continue usual dose of Lantus -Low-dose sliding scale NovoLog -4 times a day glucometers MALIGNANT MELANOMA-no evidence of active disease based on most recent evaluation MAINTENANCE ISSUES -DVT prophylaxis; Lovenox 40 mg subcutaneous daily -GI prophylaxis; Protonix 40 mg IV daily -Valles catheter; not indicated -Nutrition; consistent carb diet -Nicotine dependence; not required CODE STATUS-FULL CODE ADMISSION STATUS-patient will be admitted to inpatient status, expect at least a 2 night hospital stay for evaluation and management of problems as outlined above. At the time of this admission I do not reasonably expected evaluation and management of this problem will require more than a 96 hour hospital stay. DISPOSITION-anticipate discharge to home after the hospital stay. PRIMARY CARE PROVIDER-Dr. Gallo
[2018-04-16] MEDS: Insulin Glargine,Human Rec. Analog 100 Units/ML 3 ML Pen SUBCUT SCH (21:30)
[2018-04-16] MEDS: Enoxaparin 40 MG/0.4 ML Syringe SUBCUT SCH (21:32)
[2018-04-17] MEDS: DULoxetine 30 MG Cap PO SCH (08:07)
[2018-04-17] MEDS: Aspirin 81 MG Tab.Chew PO SCH (08:07)
[2018-04-17] MEDS: Hydrochlorothiazide 12.5 MG Cap PO SCH (08:07)
[2018-04-17] MEDS: Diltiazem 120 MG Cap.CD PO SCH (08:08)
[2018-04-17] MEDS: Pantoprazole 40 MG Tab.CR PO SCH (08:08)
[2018-04-17] MEDS: Insulin Lispro 100 Unit/ML 3 ML KwikPen SUBCUT SCH ×4 (08:10→21:23)
[2018-04-17] MEDS: Losartan 50 MG Tab PO SCH (10:39)
--- NOTE | 2018-04-17 14:05 | PCM.PN ---
- General Info Date of Service: 04/17/18 Subjective Update: Mr. Chin continues to show daily improvement, imbalance seems to be improved compared to yesterday. Continues to have vertical diplopia. Functional Status: Reports: Tolerating Diet, Ambulating, Urinating - Review of Systems General: Reports: Weakness. Denies: Fever, Chills Pulmonary: Reports: No Symptoms Cardiovascular: Reports: No Symptoms Gastrointestinal: Reports: No Symptoms Neurological: Reports: Difficulty Walking, Gait Disturbance (Imbalance). Denies : Confusion, Dizziness, Headache, Paresthesia, Trouble Speaking, Weakness - Patient Data Vitals - Most Recent: Last Vital Signs Temp 97.1 F 04/17/18 13:33 Pulse 86 04/17/18 13:33 Resp 16 04/17/18 13:33 BP 165/93 H 04/17/18 13:33 Pulse Ox 95 04/17/18 13:33 Weight - Most Recent: 286 lb 6 oz I&O - Last 24 Hours: Intake & Output 04/16/18 04/17/18 04/17/18 22:59 06:59 14:59 Intake Total 680 1720 Output Total 836 755 5378 Balance 280 -600 220 Med Orders - Current: Current Medications Acetaminophen (Tylenol) 650 mg PO Q4H PRN PRN Reason: Pain (Mild 1-3)/fever Aspirin (Aspirin) 162 mg PO DAILY [facility] Last Admin: 04/17/18 08:07 Dose: Not Given Dextrose (Glutose 15) 15 gm PO ONETIME PRN PRN Reason: Hypoglycemia Dextrose/Water (Dextrose 50% In Water) 50 ml IV ONETIME PRN PRN Reason: Hypoglycemia Diltiazem HCl (Cardizem Cd) 240 mg PO DAILY [facility] Last Admin: 04/17/18 08:08 Dose: 240 mg Duloxetine HCl (Cymbalta) 60 mg PO DAILY [facility] Last Admin: 04/17/18 08:07 Dose: Not Given Enoxaparin Sodium (Lovenox) 40 mg SUBCUT Q24H [facility] Last Admin: 04/16/18 21:32 Dose: 40 mg Insulin Glargine (Lantus Solostar) 50 units SUBCUT BEDTIME [facility] Last Admin: 04/16/18 21:30 Dose: 50 units Insulin Human Lispro (Humalog) 0 unit SUBCUT QIDACANDBED [facility]; Protocol Last Admin: 04/17/18 12:27 Dose: 2 unit Lorazepam (Ativan) 0.5 mg IV Q2H PRN PRN Reason: Nausea/Vomiting Last Admin: 04/15/18 11:22 Dose: 0.5 mg Losartan Potassium (Cozaar) 100 mg PO DAILY [facility] Last Admin: 04/17/18 10:39 Dose: 100 mg Metformin HCl (Glucophage) 850 mg PO BIDMEALS [facility] Last Admin: 04/17/18 10:39 Dose: 850 mg Ondansetron HCl (Zofran) 4 mg IV Q4H PRN PRN Reason: Nausea/Vomiting Last Admin: 04/15/18 08:08 Dose: 4 mg Ondansetron HCl (Zofran Odt) 4 mg PO Q4H PRN PRN Reason: Nausea/Vomiting Last Admin: 04/16/18 04:09 Dose: 4 mg Pantoprazole Sodium (Protonix) 40 mg PO ACBREAKFAST [facility] Sodium Chloride (Saline Flush) 10 ml FLUSH ASDIRECTED PRN PRN Reason: Keep Vein Open Discontinued Medications Aspirin (Halfprin) 81 mg PO DAILY [facility] Aspirin (Halfprin) 81 mg PO BEDTIME [facility] Aspirin (Ecotrin) 325 mg PO DAILY [facility] Last Admin: 04/15/18 16:47 Dose: Not Given Clopidogrel Bisulfate (Plavix) 75 mg PO DAILY [facility] Last Admin: 04/15/18 16:47 Dose: Not Given Enoxaparin Sodium (Lovenox) 40 mg SUBCUT DAILY [facility] Last Admin: 04/14/18 20:06 Dose: 40 mg Gadoteridol (Prohance) 20 ml IV . DIRECTED [facility] Stop: 04/15/18 12:16 Last Admin: 04/15/18 12:23 Dose: 20 ml Hydrochlorothiazide (Hydrochlorothiazide) 12.5 mg PO DAILY [facility] Last Admin: 04/17/18 08:07 Dose: Not Given Lactated Ringer's (Ringers, Lactated) 1,000 mls @ 500 mls/hr IV .BOLUS [facility] Last Admin: 04/14/18 16:07 Dose: 500 mls/hr Sodium Chloride (Normal Saline) 100 mls @ 3 mls/sec IV ASDIRECTED [facility] Last Admin: 04/14/18 16:38 Dose: 3 mls/sec Lactated Ringer's (Ringers, Lactated) 1,000 mls @ 250 mls/hr IV BOLUS ONE Stop: 04/14/18 21:58 Last Admin: 04/14/18 22:29 Dose: Not Given Lactated Ringer's (Ringers, Lactated) 1,000 mls @ 125 mls/hr IV ASDIRECTED [facility] Last Admin: 04/15/18 06:26 Dose: 125 mls/hr Insulin Glargine (Lantus Solostar) 50 units SUBCUT BEDTIME [facility] Last Admin: 04/14/18 21:28 Dose: 50 units Iopamidol (Isovue-370 (76%)) 100 ml IV . DIRECTED [facility] Last Admin: 04/14/18 16:38 Dose: 100 ml Lorazepam (Ativan) 0.5 mg IVPUSH ONETIME ONE Stop: 04/14/18 17:24 Last Admin: 04/14/18 18:16 Dose: 0.5 mg Lorazepam (Ativan) 1 mg PO ONETIME ONE Stop: 04/15/18 23:45 Last Admin: 04/16/18 00:24 Dose: 1 mg Ondansetron HCl (Zofran) 4 mg IVPUSH ONETIME ONE Stop: 04/14/18 14:55 Last Admin: 04/14/18 15:20 Dose: 4 mg Pantoprazole Sodium (Protonix Iv) 40 mg IVPUSH ACBREAKFAST [facility] Last Admin: 04/15/18 09:36 Dose: 40 mg Pantoprazole Sodium (Protonix Iv) 40 mg IVPUSH ONETIME ONE Stop: 04/14/18 20:01 Last Admin: 04/14/18 20:07 Dose: 40 mg Pantoprazole Sodium (Protonix) 40 mg PO ACBREAKFAST [facility] Last Admin: 04/17/18 08:08 Dose: 40 mg Sodium Chloride (Saline Flush) 10 ml FLUSH ASDIRECTED PRN PRN Reason: Keep Vein Open Last Admin: 04/14/18 15:20 Dose: 10 ml Sodium Chloride (Saline Flush) 10 ml FLUSH ASDIRECTED PRN PRN Reason: Keep Vein Open Last Admin: 04/14/18 16:38 Dose: 10 ml Valsartan (Diovan) 80 mg PO DAILY [facility] Last Admin: 04/17/18 08:07 Dose: Not Given - Exam General: Alert, Oriented, Cooperative, No Acute Distress Lungs: Clear to Auscultation, Normal Respiratory Effort Cardiovascular: Regular Rate, Regular Rhythm, No Murmurs GI/Abdominal Exam: Soft, Non-Tender, No Organomegaly, No Distention Extremities: Non-Tender, No Pedal Edema Neurological: Other (Continued imbalance with ambulation, slowly improving) - Problem List Review Problem List Initiated/Reviewed/Updated: Yes - My Orders Last 24 Hours: My Active Orders 04/17/18 10:00 Losartan [Cozaar] 100 mg PO DAILY metFORMIN [Glucophage] 850 mg PO BIDMEALS 04/17/18 12:29 OT Evaluation and Treatment [CONS] Routine 04/17/18 16:30 GLUCOSE POC LAB TO COLLECT [POC] QIDACANDBED 04/17/18 21:00 GLUCOSE POC LAB TO COLLECT [POC] QIDACANDBED 04/18/18 07:30 GLUCOSE POC LAB TO COLLECT [POC] QIDACANDBED Pantoprazole [ProTONIX] 40 mg PO ACBREAKFAST 04/18/18 11:30 GLUCOSE POC LAB TO COLLECT [POC] QIDACANDBED 04/18/18 16:30 GLUCOSE POC LAB TO COLLECT [POC] QIDACANDBED 04/18/18 21:00 GLUCOSE POC LAB TO COLLECT [POC] QIDACANDBED 04/19/18 07:30 GLUCOSE POC LAB TO COLLECT [POC] QIDACANDBED 04/19/18 11:30 GLUCOSE POC LAB TO COLLECT [POC] QIDACANDBED 04/19/18 16:30 GLUCOSE POC LAB TO COLLECT [POC] QIDACANDBED - Plan Plan:: ASSESSMENT AND PLAN SEVERE NAUSEA AND VOMITING WITH DEHYDRATION-essentially resolved -Saline lock IV -Zofran and/or lorazepam as needed for nausea and vomiting ACUTE CEREBELLAR CVA-symptoms of improved but he continues to experience diplopia and imbalance with standing. Improvement in symptoms since yesterday -Physical therapy and occupational therapy -Aspirin 162 mg daily -Outpatient follow-up with neurology -Anticipate transfer to inpatient rehabilitation, after insurance issues have been resolved TYPE 2 DIABETES MELLITUS -Hold metformin and scheduled NovoLog insulin -Continue usual dose of Lantus -Low-dose sliding scale NovoLog -4 times a day glucometers MALIGNANT MELANOMA-no evidence of active disease based on most recent evaluation MAINTENANCE ISSUES -DVT prophylaxis; Lovenox 40 mg subcutaneous daily -GI prophylaxis; Protonix 40 mg IV daily -Valles catheter; not indicated -Nutrition; consistent carb diet -Nicotine dependence; not required CODE STATUS-FULL CODE ADMISSION STATUS-patient will be admitted to inpatient status, expect at least a 2 night hospital stay for evaluation and management of problems as outlined above. At the time of this admission I do not reasonably expected evaluation and management of this problem will require more than a 96 hour hospital stay. DISPOSITION-anticipate discharge to home after the hospital stay. PRIMARY CARE PROVIDER-Dr. Gallo
[2018-04-17] MEDS: Insulin Glargine,Human Rec. Analog 100 Units/ML 3 ML Pen SUBCUT SCH (21:24)
[2018-04-17] MEDS: Enoxaparin 40 MG/0.4 ML Syringe SUBCUT SCH (21:25)
[2018-04-18] MEDS ORDERED: Pantoprazole 40 MG Tab.CR PO SCH (07:30)
[2018-04-18] MEDS: Insulin Lispro 100 Unit/ML 3 ML KwikPen SUBCUT SCH ×2 (07:47→12:08)
[2018-04-18] MEDS: Diltiazem 120 MG Cap.CD PO SCH (08:25)
[2018-04-18] MEDS: Losartan 50 MG Tab PO SCH (08:26)
[2018-04-18] MEDS: Ondansetron 4 MG Tab.DIS PO PRN ×2 (10:21→13:58)
[2018-04-18 10:36] VITALS: BP 145/73
--- NOTE | 2018-04-18 13:47 | PCM.DCSUM1 ---
Discharge Summary - Hospital Course Brief History: Mr. Chin is a 63-year-old gentleman who was admitted through the emergency department for further evaluation of imbalance, diplopia, nausea and vomiting. - Discharge Data Discharge Date: 04/18/18 Discharge Disposition: DC/Tfer to Inpt Rehab Fac 62 Condition: Fair - Discharge Diagnosis/Problem(s) (1) Acute cerebrovascular accident of cerebellum SNOMED Code(s): 031294830 ICD Code: I63.9 - CEREBRAL INFARCTION, UNSPECIFIED Status: Acute Current Visit: Yes (2) Ataxia SNOMED Code(s): 73486698 ICD Code: R27.0 - ATAXIA, UNSPECIFIED Status: Acute Current Visit: Yes (3) Diplopia SNOMED Code(s): 33354357 ICD Code: H53.2 - DIPLOPIA Status: Acute Current Visit: Yes (4) Melanoma SNOMED Code(s): 196703902 ICD Code: C43.9 - MALIGNANT MELANOMA OF SKIN, UNSPECIFIED Status: Chronic Current Visit: No Qualifiers: Melanoma location: unspecified site Qualified Code(s): C43.9 - Malignant melanoma of skin, unspecified (5) Type 2 diabetes mellitus SNOMED Code(s): 55457718 ICD Code: E11.9 - TYPE 2 DIABETES MELLITUS WITHOUT COMPLICATIONS Status: Chronic Current Visit: No Qualifiers: Diabetes mellitus oysterman insulin use: with prison use Diabetes mellitus complication status: with unspecified complications Qualified Code(s) : E11.8 - Type 2 diabetes mellitus with unspecified complications; Z79.4 - senior living (current) use of insulin - Patient Summary/Data Consults: Consultations 04/14/18 19:32 OT Evaluation and Treatment [CONS] Routine Please Evaluate and Treat. OT Reason for Consult: Vertigo This query below is only for informational purposes and is not editable. 04/16/18 10:16 PT Evaluation and Treatment [CONS] Routine Please Evaluate and Treat. PT Reason for Consult: Balance Pending Discharge: Yes Special Instructions: acute rehab versus outpatient This query below is only for informational purposes and is not editable. Admission Diagnosis/Problem: Vertigo 04/17/18 12:29 OT Evaluation and Treatment [CONS] Routine Please Evaluate and Treat. OT Reason for Consult: ADL's Pending Discharge: Yes Discharge Disposition: Inpatient Rehab This query below is only for informational purposes and is not editable. Admission Diagnosis/Problem: Vertigo Hospital Course: Mr. Chin is a 63-year-old gentleman who was admitted through the emergency department with severe nausea vomiting, dehydration, secondary to vertigo/ imbalance. He is had one previous episode of positional vertigo that was nowhere near as bad as this. He feels that symptoms are different than what he previously experienced in that they have been continuous over the past 3 days. As a result he's had no oral intake over the last 3 days with ongoing nausea and vomiting. He has a history of malignant melanoma and is status post immune modulated chemotherapy done at the [facility] in [place]. Apparently this has worked well and up until this point there has been no evidence of recurrent melanoma. He has been experiencing wrist and hand swelling with stiffness that has become fairly severe. His oncologist at [place] feels that this may be a side effect related to his recent immunotherapy. He currently denies any focal neurologic deficits, CTA scan of the head with contrast done in the emergency department shows no evidence of intracranial hemorrhage, infarct, arterial blockage, or mass. On admission he was given IV fluids for hydration and medication as needed for nausea vomiting. MRI with contrast was obtained on the day after admission and did show evidence of a left cerebellar CVA with possibly some extension into the midbrain. Findings were reviewed with neurology machine precision engraver in [place] and they recommended increasing aspirin to 162 mg daily. Echocardiogram was obtained which showed no obvious cardiac source of embolism. He was seen daily by physical therapy and occupational therapy while hospitalized. Blood glucose levels were monitored for follow-up of his diabetes and he was treated with his long-acting insulin, metformin, and sliding scale Humulog. Activity will be as tolerated and he remain on a diabetic diet. Follow-up appointment should be scheduled with his primary care provider within one week of discharge from rehabilitation. He will also need outpatient follow-up with neurology and ophthalmology. - Patient Instructions Diet: Diabetic Diet Activity: As Tolerated Other/Special Instructions: He will be transferred to inpatient rehabilitation in [facility]. Schedule follow-up appointment with primary care physician within one week after discharge from rehabilitation. He will need outpatient consults with neurology and ophthalmology. - Discharge Plan *PRESCRIPTION DRUG MONITORING PROGRAM REVIEWED*: Not Applicable *COPY OF PRESCRIPTION DRUG MONITORING REPORT IN PATIENT CAMILO: Not Applicable Home Medications: Home Meds Diltiazem HCl [Diltiazem ER] 240 mg PO DAILY 07/12/15 [History] Insulin Detemir [Levemir Flextouch] 50 units SQ BEDTIME 07/12/15 [History] Losartan [Cozaar] 100 mg PO DAILY 07/12/15 [History] Omeprazole 20 mg PO ACBREAKFAST 07/12/15 [History] metFORMIN [Glucophage] 850 mg PO BIDMEALS 07/12/15 [History] Insulin Aspart [NovoLOG] 25 units SUBCUT TIDMEALS 02/11/16 [History] DULoxetine [Cymbalta] 60 mg PO DAILY 07/01/17 [History] Naproxen Sodium [Aleve] 440 mg PO BID 07/01/17 [History] Aspirin [Ecotrin] 162 mg PO DAILY #0 04/18/18 [Rx] Enoxaparin [Lovenox] 40 mg SUBCUT Q24H syringe 04/18/18 [Rx] Ondansetron [Zofran ODT] 4 mg PO Q4H PRN tab.dis 04/18/18 [Rx] Referrals: Roney Gallo MD [Primary Care Provider] - - Discharge Summary/Plan Comment DC Time >30 min.: No - Patient Data Vitals - Most Recent: Last Vital Signs Temp 97.5 F 04/18/18 10:33 Pulse 80 04/18/18 10:33 Resp 18 04/18/18 10:33 BP 145/73 H 04/18/18 10:33 Pulse Ox 94 L 04/18/18 10:33 Weight - Most Recent: 286 lb 6 oz I&O - Last 24 hours: Intake & Output 04/17/18 04/18/18 04/18/18 22:59 06:59 14:59 Intake Total 675 300 500 Output Total 400 Balance 675 -100 500 Med Orders - Current: Current Medications Acetaminophen (Tylenol) 650 mg PO Q4H PRN PRN Reason: Pain (Mild 1-3)/fever Aspirin (Aspirin) 162 mg PO BEDTIME HA Dextrose (Glutose 15) 15 gm PO ONETIME PRN PRN Reason: Hypoglycemia Dextrose/Water (Dextrose 50% In Water) 50 ml IV ONETIME PRN PRN Reason: Hypoglycemia Diltiazem HCl (Cardizem Cd) 240 mg PO DAILY HA Last Admin: 04/18/18 08:25 Dose: 240 mg Duloxetine HCl (Cymbalta) 60 mg PO BEDTIME [facility] Enoxaparin Sodium (Lovenox) 40 mg SUBCUT Q24H [facility] Last Admin: 04/17/18 21:25 Dose: 40 mg Insulin Glargine (Lantus Solostar) 50 units SUBCUT BEDTIME [facility] Last Admin: 04/17/18 21:24 Dose: 50 units Insulin Human Lispro (Humalog) 0 unit SUBCUT QIDACANDBED [facility]; Protocol Last Admin: 04/18/18 12:08 Dose: Not Given Lorazepam (Ativan) 0.5 mg IV Q2H PRN PRN Reason: Nausea/Vomiting Last Admin: 04/15/18 11:22 Dose: 0.5 mg Losartan Potassium (Cozaar) 100 mg PO DAILY [facility] Last Admin: 04/18/18 08:26 Dose: 100 mg Metformin HCl (Glucophage) 850 mg PO BIDMEALS [facility] Last Admin: 04/18/18 07:47 Dose: 850 mg Ondansetron HCl (Zofran) 4 mg IV Q4H PRN PRN Reason: Nausea/Vomiting Last Admin: 04/15/18 08:08 Dose: 4 mg Ondansetron HCl (Zofran Odt) 4 mg PO Q4H PRN PRN Reason: Nausea/Vomiting Last Admin: 04/18/18 10:21 Dose: 4 mg Pantoprazole Sodium (Protonix) 40 mg PO ACBREAKFAST [facility] Last Admin: 04/18/18 07:47 Dose: 40 mg Sodium Chloride (Saline Flush) 10 ml FLUSH ASDIRECTED PRN PRN Reason: Keep Vein Open Discontinued Medications Aspirin (Halfprin) 81 mg PO DAILY [facility] Aspirin (Halfprin) 81 mg PO BEDTIME [facility] Aspirin (Ecotrin) 325 mg PO DAILY [facility] Last Admin: 04/15/18 16:47 Dose: Not Given Aspirin (Aspirin) 162 mg PO DAILY [facility] Last Admin: 04/17/18 08:07 Dose: Not Given Clopidogrel Bisulfate (Plavix) 75 mg PO DAILY [facility] Last Admin: 04/15/18 16:47 Dose: Not Given Duloxetine HCl (Cymbalta) 60 mg PO DAILY [facility] Last Admin: 04/17/18 08:07 Dose: Not Given Enoxaparin Sodium (Lovenox) 40 mg SUBCUT DAILY [facility] Last Admin: 02/17/19 20:06 Dose: 40 mg Gadoteridol (Prohance) 20 ml IV . DIRECTED [facility] Stop: 04/15/18 12:16 Last Admin: 04/15/18 12:23 Dose: 20 ml Hydrochlorothiazide (Hydrochlorothiazide) 12.5 mg PO DAILY [facility] Last Admin: 04/17/18 08:07 Dose: Not Given Lactated Ringer's (Ringers, Lactated) 1,000 mls @ 500 mls/hr IV .BOLUS [facility] Last Admin: 04/14/18 16:07 Dose: 500 mls/hr Sodium Chloride (Normal Saline) 100 mls @ 3 mls/sec IV ASDIRECTED [facility] Last Admin: 04/14/18 16:38 Dose: 3 mls/sec Lactated Ringer's (Ringers, Lactated) 1,000 mls @ 250 mls/hr IV BOLUS ONE Stop: 04/14/18 21:58 Last Admin: 04/14/18 22:29 Dose: Not Given Lactated Ringer's (Ringers, Lactated) 1,000 mls @ 125 mls/hr IV ASDIRECTED [facility] Last Admin: 04/15/18 06:26 Dose: 125 mls/hr Insulin Glargine (Lantus Solostar) 50 units SUBCUT BEDTIME [facility] Last Admin: 04/14/18 21:28 Dose: 50 units Iopamidol (Isovue-370 (76%)) 100 ml IV . DIRECTED [facility] Last Admin: 04/14/18 16:38 Dose: 100 ml Lorazepam (Ativan) 0.5 mg IVPUSH ONETIME ONE Stop: 04/14/18 17:24 Last Admin: 04/14/18 18:16 Dose: 0.5 mg Lorazepam (Ativan) 1 mg PO ONETIME ONE Stop: 04/15/18 23:45 Last Admin: 04/16/18 00:24 Dose: 1 mg Ondansetron HCl (Zofran) 4 mg IVPUSH ONETIME ONE Stop: 04/14/18 14:55 Last Admin: 04/14/18 15:20 Dose: 4 mg Pantoprazole Sodium (Protonix Iv) 40 mg IVPUSH ACBREAKFAST [facility] Last Admin: 04/15/18 09:36 Dose: 40 mg Pantoprazole Sodium (Protonix Iv) 40 mg IVPUSH ONETIME ONE Stop: 04/14/18 20:01 Last Admin: 04/14/18 20:07 Dose: 40 mg Pantoprazole Sodium (Protonix) 40 mg PO ACBREAKFAST [facility] Last Admin: 04/17/18 08:08 Dose: 40 mg Sodium Chloride (Saline Flush) 10 ml FLUSH ASDIRECTED PRN PRN Reason: Keep Vein Open Last Admin: 04/14/18 15:20 Dose: 10 ml Sodium Chloride (Saline Flush) 10 ml FLUSH ASDIRECTED PRN PRN Reason: Keep Vein Open Last Admin: 04/14/18 16:38 Dose: 10 ml Valsartan (Diovan) 80 mg PO DAILY [facility] Last Admin: 04/17/18 08:07 Dose: Not Given - Exam Quality Assessment: Reports: DVT Prophylaxis General: Reports: Alert, Oriented, Cooperative, Mild Distress Lungs: Reports: Clear to Auscultation, Normal Respiratory Effort Cardiovascular: Reports: Regular Rate, Regular Rhythm, No Murmurs GI/Abdominal Exam: Soft, Non-Tender, No Organomegaly, No Distention Neurological: Reports: Other (Imbalance with standing, diplopia)
[2018-04-18] MEDS ORDERED: Aspirin 81 MG Tab.Chew PO SCH (21:00)
[2018-04-18] MEDS ORDERED: DULoxetine 30 MG Cap PO SCH (21:00)
== END 2018-04-18 14:28 | DRG 45 ==
LOC: JP.ED 13:39 → JP.MS 18:30
PROVIDERS: ADMIT Hospitalist; ATTEND Hospitalist
DX: I63.9 Cerebral infarction, unspecified (principal); R27.0 Ataxia, unspecified; H53.2 Diplopia; I10 Essential (primary) hypertension; E86.0 Dehydration; E11.9 Type 2 diabetes mellitus without complications; Z79.4 Long term (current) use of insulin; Z85.820 Personal history of malignant melanoma of skin; E78.00 Pure hypercholesterolemia, unspecified; G47.30 Sleep apnea, unspecified; K21.9 Gastro-esophageal reflux disease without esophagitis; M19.90 Unspecified osteoarthritis, unspecified site; Z92.21 Personal history of antineoplastic chemotherapy; E66.9 Obesity, unspecified; Z68.39 Body mass index [BMI] 39.0-39.9, adult; H54.7 Unspecified visual loss; M25.442 Effusion, left hand; M25.441 Effusion, right hand; M25.432 Effusion, left wrist; M25.431 Effusion, right wrist; T45.1X5A Adverse effect of antineoplastic and immunosuppressive drugs, initial encounter; Y92.231 Patient bathroom in hospital as the place of occurrence of the external cause; Z96.659 Presence of unspecified artificial knee joint; Z79.82 Long term (current) use of aspirin; Z88.5 Allergy status to narcotic agent; Z88.8 Allergy status to other drugs, medicaments and biological substances
CPT/HCPCS: 36415; 70496; 70553; 70553-26; 80053; 82962; 83605; 84484; 85025; 85610; 85730; 93306; 94762; 96361; 96374; 96375; 97110-GP; 97112-GP; 97116-GP; 97163-GP; 97165-GO; 97166-GO; 97530-GP; 99285-25; A9270-GY; A9576; A9579; C9113; J1650; J1815; J1815-GY; J2060; J2405; J7030; J7120; Q9967

== ENCOUNTER 2018-10-04 10:10 | Emergency (ER) | payer BC ==
--- NOTE | 2018-10-04 10:33 | EDM.PDOC ---
ED HPI GENERAL MEDICAL PROBLEM - General Chief Complaint: Chest Pain Stated Complaint: CHEST PAIN SENT FROM CLINIC Time Seen by Provider: 10/04/18 10:20 Source of Information: Reports: Patient, Old Records, Provider, RN History Limitations: Reports: No Limitations - History of Present Illness INITIAL COMMENTS - FREE TEXT/NARRATIVE: 63 yo male presents on referral from the clinic by Dr. Gallo for exertional chest pain that has occurred twice today, both times after climbing stairs. He had SOB with both of these spells. Dr. Gallo reported the patient had palpitations, chest pain and diaphoresis. Mr. Chin denies all of these claims except for the chest pain. There was a recent abnormal exercise stress test that showed a small area of reversible inferior ischemia. He is scheduled to follow up with cardiology soon(10/14-[facility], Dr. Skaggs). Has taken all of his morning meds today. Now in the ER he is asymptomatic. Onset: Today Onset Date: 10/04/18 Onset Time: 08:30 Duration: Minutes: (times 2) Location: Reports: Chest (left) Quality: Reports: Pressure Severity: Moderate Improves with: Reports: Rest Worsens with: Reports: Movement (exercise/stair climbing) Context: Reports: Other (see HPI) Associated Symptoms: Reports: Chest Pain, Shortness of Breath. Denies: Diaphoresis Treatments ASSISTANT CLINICAL DIRECTOR: Reports: Other (see below) (none) Chest Pain Score (Numeric/FACES): 2 - Related Data Allergies Allergy/AdvReac Type Severity Reaction Status Date / Time pravastatin Allergy Other Verified 10/04/18 10:32 atorvastatin AdvReac Muscle Verified 09/09/18 08:31 Aches meperidine AdvReac Nausea and Verified 09/09/18 08:31 Vomiting morphine AdvReac Nausea Verified 09/09/18 08:31 Home Meds: Home Meds Insulin Detemir [Levemir Flextouch] 50 units SQ BEDTIME 07/12/15 [History] Losartan [Cozaar] 100 mg PO DAILY 07/12/15 [History] Omeprazole 20 mg PO ACBREAKFAST 07/12/15 [History] metFORMIN [Glucophage] 850 mg PO BIDMEALS 07/12/15 [History] Insulin Aspart [NovoLOG] 25 units SUBCUT TIDMEALS 12/16/16 [History] DULoxetine [Cymbalta] 60 mg PO DAILY 07/01/17 [History] Naproxen Sodium [Aleve] 250 mg PO BID 07/01/17 [History] Aspirin [Ecotrin EC] 162 mg PO DAILY #0 04/18/18 [Rx] Cetirizine [ZyrTEC] 10 mg PO DAILY 09/06/18 [History] Cholecalciferol (Vitamin D3) [Vitamin D3] 1,000 unit PO DAILY 09/06/18 [History] Fluticasone Propionate [Flonase] 1 spray NASBOTH DAILY PRN 09/06/18 [History] Labetalol HCl [Labetalol] 300 mg PO BID 09/06/18 [History] Rosuvastatin [Crestor] 5 mg PO DAILY 09/06/18 [History] Sildenafil [Revatio] 2 tab PO ASDIRECTED PRN 09/06/18 [History] Zolpidem Tartrate [Ambien] 5 mg PO ASDIRECTED PRN 09/06/18 [History] amLODIPine Besylate [Amlodipine Besylate] 5 mg PO DAILY 09/09/18 [History] Past Medical History HEENT History: Reports: Impaired Vision Other HEENT History: wears glasses Cardiovascular History: Reports: High Cholesterol, Hypertension Respiratory History: Reports: Sleep Apnea Gastrointestinal History: Reports: GERD, Other (See Below) Other Gastrointestinal History: ulcer Genitourinary History: Reports: Renal Calculus Musculoskeletal History: Reports: Arthritis Neurological History: Reports: Head Trauma Other Neuro History: cerebellar stroke Endocrine/Metabolic History: Reports: Diabetes, Type II, Obesity/BMI 30+ Oncologic (Cancer) History: Reports: Other (See Below) Other Oncologic History: melanoma Dermatologic History: Reports: Melanoma Other Dermatologic History: left forehead - Infectious Disease History Infectious Disease History: Reports: Chicken Pox, Measles - Past Surgical History HEENT Surgical History: Reports: None Cardiovascular Surgical History: Reports: None Respiratory Surgical History: Reports: None GI Surgical History: Reports: Colonoscopy, Hernia Repair/Other Male Surgical History: Reports: None Endocrine Surgical History: Reports: None Musculoskeletal Surgical History: Reports: Arthroscopic Knee, Knee Replacement Dermatological Surgical History: Reports: None Social & Family History - Family History Family Medical History: Noncontributory - Tobacco Use Smoking Status *Q: Never Smoker - Caffeine Use Caffeine Use: Reports: Coffee, Soda - Recreational Drug Use Recreational Drug Use: No ED ROS GENERAL - Review of Systems Review Of Systems: See Below Constitutional: Reports: No Symptoms. Denies: Diaphoresis HEENT: Reports: No Symptoms Respiratory: Reports: Shortness of Breath (with exetion/chest pain) Cardiovascular: Reports: Chest Pain, Dyspnea on Exertion. Denies: Edema, Orthopnea, Palpitations, Syncope Endocrine: Reports: No Symptoms GI/Abdominal: Reports: No Symptoms : Reports: No Symptoms Musculoskeletal: Reports: No Symptoms Skin: Reports: No Symptoms. Denies: Diaphoresis Neurological: Reports: No Symptoms Psychiatric: Reports: No Symptoms ED EXAM, GENERAL - Physical Exam Exam: See Below Exam Limited By: No Limitations General Appearance: Alert, WD/WN, No Apparent Distress Eye Exam: Bilateral Eye: Normal Inspection Ears: Normal External Exam, Normal Canal, Hearing Grossly Normal Ear Exam: Bilateral Ear: Auricle Normal, Canal Normal Nose: Normal Inspection, No Blood Throat/Mouth: Normal Inspection, Normal Lips, Normal Oropharynx, Normal Voice, No Airway Compromise Head: Atraumatic, Normocephalic Neck: Normal Inspection Respiratory/Chest: No Respiratory Distress, Lungs Clear, Normal Breath Sounds, No Accessory Muscle Use, Chest Non-Tender Cardiovascular: Regular Rate, Rhythm, No Edema GI/Abdominal: Normal Bowel Sounds, Soft, Non-Tender, No Distention Back Exam: Normal Inspection. No: CVA Tenderness (R), CVA Tenderness (L) Extremities: Normal Inspection, Normal Range of Motion, Non-Tender, No Pedal Edema Neurological: Alert, Oriented, CN II-XII Intact, Normal Cognition, No Motor/ Sensory Deficits Psychiatric: Normal Affect, Normal Mood Skin Exam: Warm, Dry, Intact, Normal Color, No Rash EKG INTERPRETATION EKG Date: 10/04/18 Time: 10:15 Rhythm: NSR Rate (Beats/Min): 75 Wilder: Normal P-Wave: Present QRS: Normal ST-T: Normal QT: Normal Comparison: No Change Course - Vital Signs Text/Narrative:: Discussed case with Dr. Velásquez of [place] cardiology @ 1254h Last Recorded V/S: Last Vital Signs Temp 36.3 C 10/04/18 10:19 Pulse 64 10/04/18 11:59 Resp 18 10/04/18 11:59 BP 127/61 10/04/18 11:59 Pulse Ox 93 L 10/04/18 11:59 - Orders/Labs/Meds Orders: Active Orders 24 hr Category Date Time Status Cardiac Monitoring [RC] .As Directed Care 10/04/18 10:13 Active EKG Documentation Completion [RC] ASDIRECTED Care 10/04/18 10:13 Active Iopamidol [Isovue-370 (76%)] Med 10/04/18 11:45 Active 100 ml IV . DIRECTED Sodium Chloride 0.9% [Normal Saline] 1,000 ml Med 10/04/18 11:30 Active IV ASDIRECTED Sodium Chloride 0.9% [Saline Flush] Med 10/04/18 11:38 Active 10 ml FLUSH ONETIME PRN EKG 12 Lead [EK] Routine Ther 10/04/18 10:13 Ordered Medication Orders Sodium Chloride (Normal Saline) 1,000 mls @ 150 mls/hr IV ASDIRECTED HA Iopamidol (Isovue-370 (76%)) 100 ml IV . DIRECTED HA Last Admin: 10/04/18 11:58 Dose: 100 ml Sodium Chloride (Saline Flush) 10 ml FLUSH ONETIME PRN PRN Reason: PER RADIOLOGY PROTOCOL Last Admin: 10/04/18 11:58 Dose: 10 ml Labs: Laboratory Tests 10/04/18 10/04/18 10/04/18 Range/Units 10:40 10:40 10:40 WBC 5.7 (4.5-11.0) K/uL RBC 4.23 L (4.30-5.90) M/uL Hgb 12.5 (12.0-15.0) g/dL Hct 37.5 L (40.0-54.0) % MCV 89 (80-98) fL MCH 30 (27-31) pg MCHC 33 (32-36) % Plt Count 189 (150-400) K/uL D-Dimer, Quantitative 561 H (0.0-400.0) ng/mL Sodium 140 (140-148) mmol/L Potassium 4.5 (3.6-5.2) mmol/L Chloride 103 (100-108) mmol/L Carbon Dioxide 29 (21-32) mmol/L Anion Gap 7.6 (5.0-14.0) mmol/L BUN 21 H (7-18) mg/dL Creatinine 1.2 (0.8-1.3) mg/dL Est Cr Clr Drug Dosing 68.26 mL/min Estimated GFR (MDRD) > 60 (>60) Glucose 126 H (74-106) mg/dL Calcium 9.4 (8.5-10.1) mg/dL Troponin I < 0.017 (0.000-0.056) ng/mL Meds: Medications Generic Name Dose Route Start Last Admin Trade Name Freq PRN Reason Stop Dose Admin Sodium Chloride 1,000 mls @ 150 mls/hr 10/04/18 11:30 Normal Saline IV ASDIRECTED HA Iopamidol 100 ml 10/04/18 11:45 10/04/18 11:58 Isovue-370 (76%) IV 100 ml . DIRECTED HA Administration Sodium Chloride 10 ml 10/04/18 11:38 10/04/18 11:58 Saline Flush FLUSH 10 ml ONETIME PRN Administration PER RADIOLOGY PROTOCOL Discontinued Medications Generic Name Dose Route Start Last Admin Trade Name Freq PRN Reason Stop Dose Admin Sodium Chloride 100 mls @ 3 mls/sec 10/04/18 11:38 10/04/18 11:58 Normal Saline IV 10/04/18 11:39 3 mls/sec ONETIME ONE Administration - Radiology Interpretation Free Text/Narrative:: CTA chest-neg CT Results Date: 10/04/18 Departure - Departure Time of Disposition: 13:35 Disposition: DC/Tfer to Acute Hospital 02 Reason for Transfer *Q: Other Condition: Fair Clinical Impression: Coronary artery disease with exertional angina Instructions: Angina Pectoris, [id number] Referrals: Roney Gallo MD [Primary Care Provider] - Forms: ED Department Discharge Additional Instructions: Go as directly as you can to [facility] to be a direct admission. If you re-develop chest pain that doesn't resolve with rest, then go to the nearest ER promptly. Avoid exertion until you are seen at [facility]. - My Orders Last 24 Hours: My Active Orders 10/04/18 10:13 Cardiac Monitoring [RC] .As Directed EKG Documentation Completion [RC] ASDIRECTED EKG 12 Lead [EK] Routine 10/04/18 11:30 Sodium Chloride 0.9% [Normal Saline] 1,000 ml IV ASDIRECTED 10/04/18 11:38 Sodium Chloride 0.9% [Saline Flush] 10 ml FLUSH ONETIME PRN 10/04/18 11:45 Iopamidol [Isovue-370 (76%)] 100 ml IV . DIRECTED - Assessment/Plan Last 24 Hours: My Active Orders 10/04/18 10:13 Cardiac Monitoring [RC] .As Directed EKG Documentation Completion [RC] ASDIRECTED EKG 12 Lead [EK] Routine 10/04/18 11:30 Sodium Chloride 0.9% [Normal Saline] 1,000 ml IV ASDIRECTED 10/04/18 11:38 Sodium Chloride 0.9% [Saline Flush] 10 ml FLUSH ONETIME PRN 10/04/18 11:45 Iopamidol [Isovue-370 (76%)] 100 ml IV . DIRECTED
[2018-10-04] MEDS ORDERED: Sodium Chloride 0.9% 1,000 ML IV SCH (11:30)
[2018-10-04] MEDS ORDERED: Sodium Chloride 0.9% 100 ML IV ONE (11:38)
[2018-10-04] MEDS ORDERED: Sodium Chloride 0.9% 10 ML Syringe FLUSH PRN (11:38)
[2018-10-04] MEDS ORDERED: Iopamidol 755 Mg/ML 100 ML Bottle IV SCH (11:45)
[2018-10-04 12:05] VITALS: BP 127/61; PULSE 64
--- NOTE | 2018-10-04 12:44 | CRLCT ---
HISTORY: Dyspnea on exertion. Elevated D-dimer. TECHNIQUE: CT chest with IV contrast, pulmonary embolism protocol. COMPARISON: CT chest, abdomen, and pelvis 07/23/2018. FINDINGS: Pulmonary arteries: No pulmonary embolism. Nondiagnostic evaluation of some segmental and subsegmental pulmonary arteries in the lingula and left lower lobe due to motion artifact. Main pulmonary artery is dilated to 3.5 cm. Lungs: Central airways are patent. No consolidation or edema. Calcified granuloma in the retro hilar right upper lobe. Minimal atelectasis in both lung bases. No pleural effusion or pneumothorax. Mediastinum: Ascending thoracic aorta is upper normal caliber. Coronary artery calcifications. No pericardial effusion. Lymph nodes: No enlarged lymph nodes. Musculoskeletal: Degenerative changes of the spine. Upper abdomen: Calcified granulomas in the spleen. IMPRESSION: 1. No pulmonary embolism. 2. Minimal atelectasis in both lungs. No acute pulmonary abnormality otherwise. Please note that all CT scans at this facility use dose modulation, iterative reconstruction, and/or weight-based dosing when appropriate to reduce radiation dose to as low as reasonably achievable. Dictated by Cecilio Sadler MD @ Oct 04 2018 12:31PM Signed by Dr. Cecilio Sadler @ Oct 04 2018 12:42PM
== END 2018-10-04 14:18 ==
LOC: JP.ED 10:10
DX: I25.119 Atherosclerotic heart disease of native coronary artery with unspecified angina pectoris (principal); I10 Essential (primary) hypertension; E11.9 Type 2 diabetes mellitus without complications; E66.9 Obesity, unspecified; Z79.82 Long term (current) use of aspirin; Z79.4 Long term (current) use of insulin; K21.9 Gastro-esophageal reflux disease without esophagitis; Z79.899 Other long term (current) drug therapy
CPT/HCPCS: 36415; 71275; 80048; 84484; 85027; 85379; 93005; 99285; J7030; Q9967

== ENCOUNTER 2020-06-13 09:37 | Emergency (ER) | payer MEDICARE, BC ==
[2020-06-13] MEDS ORDERED: Bacitracin Oint 1 GM U/D Packet TOP ONE (09:48)
[2020-06-13 09:56] VITALS: BP 134/82; PULSE 74
--- NOTE | 2020-06-13 09:56 | EDM.PDOC ---
ED HPI GENERAL MEDICAL PROBLEM - General Chief Complaint: Laceration Stated Complaint: right ring finger cut finger tip Time Seen by Provider: 06/13/20 09:53 Source of Information: Reports: Patient, RN Notes Reviewed History Limitations: Reports: No Limitations - History of Present Illness INITIAL COMMENTS - FREE TEXT/NARRATIVE: 65-year-old gentleman presents emergency department today with a laceration to his ring finger on his right hand he suffered this injury with a kick back from the table saw he has no functional complaints - Related Data Allergies Allergy/AdvReac Type Severity Reaction Status Date / Time pravastatin Allergy Other Verified 06/13/20 09:47 atorvastatin AdvReac Muscle Verified 06/13/20 09:47 Aches meperidine AdvReac Nausea and Verified 06/13/20 09:47 Vomiting morphine AdvReac Nausea Verified 06/13/20 09:47 Home Meds: Home Meds Insulin Detemir [Levemir Flextouch] 50 units SQ BEDTIME 07/12/15 [History] Losartan [Cozaar] 100 mg PO DAILY 07/12/15 [History] Omeprazole 20 mg PO ACBREAKFAST 07/12/15 [History] metFORMIN [Glucophage] 850 mg PO BIDMEALS 07/12/15 [History] Insulin Aspart [NovoLOG] 25 units SUBCUT TIDMEALS 02/11/16 [History] DULoxetine [Cymbalta] 60 mg PO DAILY 07/01/17 [History] Naproxen Sodium [Aleve] 250 mg PO BID 07/01/17 [History] Aspirin [Ecotrin EC] 162 mg PO DAILY #0 04/18/18 [Rx] Cetirizine [ZyrTEC] 10 mg PO DAILY 09/06/18 [History] Cholecalciferol (Vitamin D3) [Vitamin D3] 1,000 unit PO DAILY 09/06/18 [History] Fluticasone Propionate [Flonase] 1 spray NASBOTH DAILY PRN 09/06/18 [History] Labetalol HCl [Labetalol] 300 mg PO BID 09/06/18 [History] Rosuvastatin [Crestor] 5 mg PO DAILY 09/06/18 [History] Sildenafil [Revatio] 2 tab PO ASDIRECTED PRN 09/06/18 [History] Zolpidem Tartrate [Ambien] 5 mg PO ASDIRECTED PRN 09/06/18 [History] amLODIPine Besylate [Amlodipine Besylate] 5 mg PO DAILY 09/09/18 [History] Past Medical History HEENT History: Reports: Impaired Vision Other HEENT History: wears glasses Cardiovascular History: Reports: High Cholesterol, Hypertension Respiratory History: Reports: Sleep Apnea Gastrointestinal History: Reports: GERD, Other (See Below) Other Gastrointestinal History: ulcer Genitourinary History: Reports: Renal Calculus Musculoskeletal History: Reports: Arthritis Neurological History: Reports: Head Trauma Other Neuro History: cerebellar stroke Endocrine/Metabolic History: Reports: Diabetes, Type II, Obesity/BMI 30+ Oncologic (Cancer) History: Reports: Other (See Below) Other Oncologic History: melanoma Dermatologic History: Reports: Melanoma Other Dermatologic History: left forehead - Infectious Disease History Infectious Disease History: Reports: Chicken Pox, Measles - Past Surgical History HEENT Surgical History: Reports: None Cardiovascular Surgical History: Reports: None Respiratory Surgical History: Reports: None GI Surgical History: Reports: Colonoscopy, Hernia Repair/Other Male Surgical History: Reports: None Endocrine Surgical History: Reports: None Musculoskeletal Surgical History: Reports: Arthroscopic Knee, Knee Replacement Dermatological Surgical History: Reports: None Social & Family History - Family History Family Medical History: No Pertinent Family History - Caffeine Use Caffeine Use: Reports: Coffee, Soda ED ROS GENERAL - Review of Systems Review Of Systems: See Below Skin: Reports: Wound ED EXAM, SKIN/RASH Exam: See Below Text/Narrative:: Examination of digit #4 right hand has a very complex laceration from a table saw he has full range of motion of the digits radial pulses +2 sensation is intact ED SKIN PROCEDURES - Laceration/Wound Repair Right Digit - 4th (Ring) Appearance: Subcutaneous, Irregular Distal NVT: Neuro & Vascular Intact, No Tendon Injury Anesthetic Type: Digital Local Anesthesia - Lidocaine (Xylocaine): 1% Plain Local Anesthetic Volume: 2cc Skin Prep: Saline Saline Irrigation (cc's): 60 Exploration/Debridement/Repair: Wound Explored, In a Bloodless Field, Explored to Base Closed with: Sutures Lac/Wound length In cm: 1.5 Suture Size: 4-0 # of Sutures: 3 Suture Type: Interrupted Sterile Dressing Applied: Nurse Tetanus Status Addressed: Yes Complications: No Course - Vital Signs Last Recorded V/S: Last Vital Signs Temp 97.7 F 06/13/20 09:55 Pulse 74 06/13/20 09:55 Resp 16 06/13/20 09:55 BP 134/82 06/13/20 09:55 Pulse Ox 96 06/13/20 09:55 - Orders/Labs/Meds Orders: Active Orders 24 hr Category Date Time Status Fingers Fourth Digit Rt F8 [CR] Stat Exams 06/13/20 09:48 Taken Meds: Medications Discontinued Medications Generic Name Dose Route Start Last Admin Trade Name Emily PRN Reason Stop Dose Admin Bacitracin 1 dose 06/13/20 09:48 06/13/20 10:02 Bacitracin Oint 1 Gm U/D Packet TOP 06/13/20 09:49 1 dose ONETIME ONE Administration Lidocaine HCl 5 ml 06/13/20 09:48 06/13/20 10:02 Lidocaine 1% 5 Ml Sdv INJECT 06/13/20 09:49 5 ml ONETIME ONE Administration Departure - Departure Time of Disposition: 10:57 Disposition: Home, Self-Care 01 Condition: Fair Clinical Impression: Laceration of right ring finger Qualifiers: Encounter type: initial encounter Damage to nail status: with damage Foreign body presence: without foreign body Qualified Code(s): S61.314A - Laceration without foreign body of right ring finger with damage to nail, initial encounter - Discharge Information Instructions: Laceration Care, Adult Referrals: Roney Gallo MD [Primary Care Provider] - Forms: ED Department Discharge Additional Instructions: Use Tylenol or Motrin as needed for pain control suture removal in 10 days follow wound care instruction sheet, return to the emergency department with worsening of symptoms return to the clinic or return to the emergency department for suture removal Sepsis Event Note (ED) - Focused Exam Vital Signs: Vital Signs Temp Pulse Resp BP Pulse Ox 06/13/20 09:55 97.7 F 74 16 134/82 96 - My Orders Last 24 Hours: My Active Orders 06/13/20 09:48 Fingers Fourth Digit Rt F8 [CR] Stat - Assessment/Plan Last 24 Hours: My Active Orders 06/13/20 09:48 Fingers Fourth Digit Rt F8 [CR] Stat Plan: Assessment Acuity = acute Site and laterality = laceration digit #4 right hand Etiology = tablesaw Manifestations = none Location of injury = Home Lab values = x-ray reveals no fracture Plan Suture removal in 10 days follow wound care instruction sheet This note was dictated using dragon voice recognition software please call with any questions on syntax or grammar.
--- NOTE | 2020-06-14 12:05 | CR ---
Fingers Fourth Digit Rt F8 CLINICAL HISTORY: Injury FINDINGS: There is soft tissue disruption at the tip of the fourth digit. No definite tuft fracture is identified. There is a faint density near the soft tissue disruption which may be minimal foreign body IMPRESSION: Laceration No definite fractures seen Minimal foreign body at the injury site. This could be on the skin
== END 2020-06-13 11:05 | disposition home or self-care (01) ==
LOC: JP.ED 09:37
DX: S61.314A Laceration without foreign body of right ring finger with damage to nail, initial encounter (principal); E78.00 Pure hypercholesterolemia, unspecified; I10 Essential (primary) hypertension; K21.9 Gastro-esophageal reflux disease without esophagitis; M19.90 Unspecified osteoarthritis, unspecified site; E11.9 Type 2 diabetes mellitus without complications; E66.9 Obesity, unspecified; Z68.41 Body mass index [BMI] 40.0-44.9, adult; Z88.8 Allergy status to other drugs, medicaments and biological substances; Z88.5 Allergy status to narcotic agent; Z79.82 Long term (current) use of aspirin; Z79.4 Long term (current) use of insulin; Z86.73 Personal history of transient ischemic attack (TIA), and cerebral infarction without residual deficits; W31.2XXA Contact with powered woodworking and forming machines, initial encounter
CPT/HCPCS: 12001; 73140-26-F8; 73140-F8; 99283; 99283-25

== ENCOUNTER → 2021-05-05 | Day surgery (SDC) | payer MEDICARE, BC ==
[~2021-05-05] MED LIST: Dextrose 5%-Lactated Ringers 1,000 ML IV SCH; Midazolam 1 MG/ML 2 ML SDV ONE; Propofol 200 MG/20 ML SDV ONE; fentaNYL 100 MCG/2 ML SDV ONE
[2021-05-05 09:39] VITALS: BP 150/75; PULSE 65
[2021-05-16 05:30] LABS: H. PYLORI BREATH TEST SEE SEP RPT
== END ==
LOC: JP.SDS 06:21
PROVIDERS: ATTEND Surgery
DX: Z12.11 Encounter for screening for malignant neoplasm of colon (principal); K29.60 Other gastritis without bleeding; K29.80 Duodenitis without bleeding; K64.9 Unspecified hemorrhoids; G47.33 Obstructive sleep apnea (adult) (pediatric); E11.9 Type 2 diabetes mellitus without complications; E66.01 Morbid (severe) obesity due to excess calories; Z86.73 Personal history of transient ischemic attack (TIA), and cerebral infarction without residual deficits; Z68.41 Body mass index [BMI] 40.0-44.9, adult
CPT/HCPCS: 83013; 87081; 88305; J2250; J2704; J3010